=== PATIENT | female | born 1975 | race Caucasian/White ===

== ENCOUNTER 2020-09-07 10:03 | Outpatient (REF) | payer MEDICARE, MEDICAID, SELFPAY ==
--- NOTE | 2020-09-07 | MM_ITS ---
EXAMINATION: MM SCREENING DIGITAL BREAST TOMOSYNTHESIS, BILATERAL CLINICAL INFORMATION: Screening. Asymptomatic. The lifetime risk of breast cancer based on the Tyrer-Cuzick Model is 7%. COMPARISON: Mammography: 09/04/2019, 07/06/2018 TECHNIQUE: Digital breast tomosynthesis is performed in both the craniocaudal and mediolateral oblique views along with computer-aided detection (CAD). Synthesized 2D images are generated from the tomosynthesis. FINDINGS: The breasts are heterogeneously dense, which may obscure small masses (ACR BI-RADS breast composition Category c). There are no significant masses, abnormal calcifications, or other abnormalities. The axilla and skin contours are unremarkable. No significant changes from prior studies. MM/MM tomosynthesis screening BI IMPRESSION: No mammographic evidence of malignancy. ASSESSMENT: BI-RADS 1: Negative RECOMMENDATION: Routine annual mammography screening. This patient's information was entered into a reminder system with a target due date for their next mammogram.
== END 2020-09-07 10:04 | disposition home or self-care (01) ==
LOC: HO.MAMMO 10:03
PROVIDERS: Visit Provider Internal Medicine
DX: Z12.31 Encounter for screening mammogram for malignant neoplasm of breast (principal)
CPT/HCPCS: 77063; 77067

== ENCOUNTER 2021-09-27 08:55 | Outpatient (REF) | payer MEDICARE, MEDICAID, SELFPAY ==
[2021-09-27 09:12] LABS: MANUAL DIFF FLAG NO
[2021-09-27 09:25] LABS: Basophils Percent Auto 0.4 % (0-2); Eosinophils Absolute Auto 0.1 X10*3/uL (0.0-0.4); Eosinophils Percent Auto 0.7 % (0-4); Hemoglobin 14.5 g/dl (12.0-16.0); Imm Gran Abs Auto 0.01 X10*3/uL (0.00-0.03); Imm Gran Pct Auto 0.1 % (0.0-0.4); Lymphocytes Absolute Auto 2.7 X10*3/uL (1.2-4.9); Lymphocytes Percent Auto 35.2 % (20-40); Mean Corpuscular HGB Conc 32.2 g/dl (31.0-35.0); Mean Corpuscular Hemoglobin 31.6 pg (27.0-33.0); Mean Platelet Volume 10.9 fL (9.4-12.3); Monocytes Absolute Auto 0.4 X10*3/uL (0.1-1.2); Neutrophils Absolute Auto 4.4 x10*3/uL (2.0-8.3); Neutrophils Percent Auto 58.6 % (45-73); Platelet Count 327 X10*3/uL (160-400); Red Blood Count 4.59 X10*6/uL (4.20-5.50); Red Cell Distribution Width 13.2 % (11.0-16.0); White Blood Count 7.6 X10*3/uL (4.8-10.8)
[2021-09-27 09:40] LABS: Alanine Aminotransferase 16 U/L (0-31); Albumin Level 4.6 g/dL (3.5-5.0); Alkaline Phosphatase 90 U/L (39-117); Anion Gap 13 (12-20); Aspartate Amino Transferase 14 U/L (5-31); Bilirubin Total 0.4 mg/dL (0.0-1.0); Blood Urea Nitrogen 15 mg/dL (9-16); Calcium 10.2 mg/dL (8.4-10.2); Carbon Dioxide 26 mmol/L (22-29); Chloride 105 mmol/L (96-108); Cholesterol 228 mg/dL; Estimated Glomerular Filt Rate > 60; Glucose Random 90 mg/dL (60-115); HDL Cholesterol 47 mg/dL; LDL Cholesterol Calculated 152 mg/dl; Potassium 4.1 mmol/L (3.3-5.1); Sodium 140 mmol/L (135-145); Total Protein 8.4 g/dL (6.5-8.0); Triglycerides 148 mg/dL
[2021-09-27 10:04] LABS: Free T4 (Free Thyroxine) 1.04 ng/dL (0.71-1.85); Thyroid Stimulating Hormone 0.64 uIU/mL (0.32-4.0)
[2021-09-27 10:20] LABS: Folate 13.4 ng/mL (> or = 4.0); Vitamin B12 280 pg/mL (200-900)
== END 2021-09-27 08:56 | disposition home or self-care (01) ==
LOC: HO.LAB 08:55
PROVIDERS: PCP Internal Medicine; Visit Provider Internal Medicine
DX: K21.9 Gastro-esophageal reflux disease without esophagitis (principal); E78.00 Pure hypercholesterolemia, unspecified
CPT/HCPCS: 36415; 80053; 80061; 82306; 82607; 82746; 84439; 84443; 85025

== ENCOUNTER 2021-10-04 09:03 | Outpatient (REF) | payer MEDICARE, MEDICAID, SELFPAY ==
--- NOTE | ~2021-10-04 | XR_ITS ---
EXAMINATION: XR KNEE, RIGHT CLINICAL INFORMATION: Pain. COMPARISON: None TECHNIQUE: Four views of the right knee. FINDINGS: Bones and soft tissues are normal. No fracture or joint effusion. Alignment is anatomic. Joint spaces are well maintained. No abnormal soft tissue calcification. XR/XR knee RT 4V IMPRESSION: Unremarkable examination.
== END 2021-10-04 09:04 | disposition home or self-care (01) ==
LOC: HO.XRAY 09:03
PROVIDERS: PCP Internal Medicine; Visit Provider Nurse Practitioner Family
DX: M25.561 Pain in right knee (principal)
CPT/HCPCS: 73564

== ENCOUNTER 2021-10-28 08:52 | Outpatient (REF) | payer MEDICARE, MEDICAID, SELFPAY ==
--- NOTE | ~2021-10-28 | MM_ITS ---
EXAMINATION: MM SCREENING DIGITAL BREAST TOMOSYNTHESIS, BILATERAL CLINICAL INFORMATION: Screening. Asymptomatic. The lifetime risk of breast cancer based on the Tyrer-Cuzick Model is 8.1%. COMPARISON: Mammography: 09/07/2020 and studies dating back to 07/06/2018. TECHNIQUE: Digital breast tomosynthesis was performed in both the craniocaudal and mediolateral oblique views along with computer-aided detection (CAD). Synthesized 2D images were generated from the tomosynthesis. FINDINGS: The breasts are heterogeneously dense, which may obscure small masses (ACR BI-RADS breast composition Category c). There is a stable parenchymal pattern of the left breast without new abnormal dominant mass or suspicious grouping of microcalcifications. Within the central aspect of the right breast approximately 5 cm from the nipple, there is a circumscribed density measuring approximately 1.1 x 0.8 cm in size. Ultrasound of the right breast is recommended for further evaluation. MM/MM tomosynthesis screening BI IMPRESSION: New, circumscribed density central aspect of the right breast for further evaluation with ultrasound. ASSESSMENT: BI-RADS 0: Incomplete - Need Additional Imaging Evaluation RECOMMENDATION: Targeted right breast ultrasound.
== END 2021-10-28 08:53 | disposition home or self-care (01) ==
LOC: HO.MAMMO 08:52
PROVIDERS: PCP Internal Medicine; Visit Provider Internal Medicine
DX: Z12.31 Encounter for screening mammogram for malignant neoplasm of breast (principal)
CPT/HCPCS: 77063; 77067

== ENCOUNTER 2021-11-05 09:16 | Outpatient (REF) | payer MEDICARE, MEDICAID, SELFPAY ==
--- NOTE | ~2021-11-05 | US_ITS ---
EXAMINATION: US DIAGNOSTIC ULTRASOUND BREAST, RIGHT CLINICAL INFORMATION: Recall from screening for circumscribed smooth oval nodule central breast mid depth. COMPARISON: Mammography 10/28/2021, 09/07/2020. TECHNIQUE: Ultrasound right breast is targeted to the central breast, interrogated from lateral side. Patient is imaged oblique and steep oblique positions with arm elevated. Grayscale imaging and color Doppler are performed without and with harmonics. FINDINGS: There is a simple cyst 9:00 position 5 cm from nipple measuring approximately 1.0 x 0.6 cm. Margins are smooth. There is increased through-transmission of sound. No associated color flow. This corresponds to finding on mammography. There is no solid mass or architectural abnormality or focal duct ectasia. Results are discussed with the patient at time of visit. US/US breast RT limited IMPRESSION: Simple cyst 9:00 position 5 cm from nipple 1.0 x 0.6 cm, corresponding to finding on recent mammography. ASSESSMENT: BI-RADS 2: Benign RECOMMENDATION: Routine annual mammography screening. This patient's information was entered into a reminder system with a target due date for their next mammogram.
== END 2021-11-05 09:17 | disposition home or self-care (01) ==
LOC: HO.MAMMO 09:16
PROVIDERS: PCP Internal Medicine; Visit Provider Internal Medicine
DX: R92.2 Inconclusive mammogram (principal)
CPT/HCPCS: 76642

== ENCOUNTER 2021-12-03 11:48 | Outpatient (REF) | payer MEDICARE, MEDICAID, SELFPAY ==
--- NOTE | ~2021-12-03 | XR_ITS ---
EXAMINATION: XR CHEST CLINICAL INFORMATION: Cough. COMPARISON: None TECHNIQUE: 2 views of the chest were obtained. FINDINGS: No significant abnormality is noted involving the heart, lungs, mediastinum, bony thorax or soft tissues. XR/XR chest 2V IMPRESSION: Unremarkable chest examination.
== END 2021-12-03 11:49 | disposition home or self-care (01) ==
LOC: HO.XRAY 11:48
PROVIDERS: PCP Internal Medicine; Visit Provider Internal Medicine
DX: R05.9 Cough, unspecified (principal); R06.00 Dyspnea, unspecified
CPT/HCPCS: 71046

== ENCOUNTER 2022-01-25 10:12 | Outpatient (REF) | payer MEDICARE, MEDICAID, SELFPAY | END 2022-01-25 10:13 | disposition home or self-care (01) | LOC: HO.LAB 10:12 | PROVIDERS: PCP Internal Medicine; Visit Provider Nurse Practitioner Family | DX: E55.9 Vitamin D deficiency, unspecified (principal) | CPT/HCPCS: 36415; 82306 ==

== ENCOUNTER 2022-07-05 10:11 | Outpatient (REF) | payer MEDICARE, MEDICAID, SELFPAY ==
[2022-07-05 10:48] LABS: Binax Internal Control QC Valid; Binax Now Covid-19 Ag Negative (Negative); Binax Performed by: HO.BONILM
== END 2022-07-05 10:12 | disposition home or self-care (01) ==
LOC: HO.HMGCLDS 10:11
PROVIDERS: PCP Internal Medicine; Visit Provider Physician Assistant
DX: Z20.822 Contact with and (suspected) exposure to COVID-19 (principal); J02.9 Acute pharyngitis, unspecified
CPT/HCPCS: 87811; C9803

== ENCOUNTER 2022-08-17 08:06 | Outpatient (REF) | payer MEDICARE, MEDICAID, SELFPAY ==
--- NOTE | ~2022-08-17 | XR_ITS ---
EXAMINATION: XR ABDOMEN KUB CLINICAL INDICATION: Constipation COMPARISON: None TECHNIQUE: AP view of the abdomen. FINDINGS: There is stool throughout the colon suggestive of constipation. There are no dilated loops of bowel to suggest obstruction. There are bilateral pelvic calcifications probably representing calcified phleboliths. Bony structures are unremarkable. XR/XR KUB IMPRESSION: Constipation. No evidence of obstruction.
== END 2022-08-17 08:07 | disposition home or self-care (01) ==
LOC: HO.XRAY 08:06
PROVIDERS: PCP Internal Medicine; Visit Provider Nurse Practitioner Family
DX: K59.00 Constipation, unspecified (principal)
CPT/HCPCS: 74018

== ENCOUNTER 2022-09-13 11:53 | Outpatient (REF) | payer MEDICARE, MEDICAID, SELFPAY ==
[2022-09-14 10:23] LABS: BV Int Neg Control Negative (Negative); BV Int Pos Control Positive (Positive)
[2022-09-14 11:04] LABS: CT PCR NOT DETECTED (Not Detect.); NG PCR NOT DETECTED (Not Detect.)
[2022-09-15 19:59] LABS: HPV mRNA E6/E7 rflx Not Detected (Not Detected)
== END 2022-09-13 11:54 | disposition home or self-care (01) ==
LOC: HO.LNP 11:53
PROVIDERS: Visit Provider Advanced Practice Midwife
DX: Z01.419 Encounter for gynecological examination (general) (routine) without abnormal findings (principal); Z11.51 Encounter for screening for human papillomavirus (HPV)
CPT/HCPCS: 87480; 87491; 87510; 87591; 87624; 87660; 88142

== ENCOUNTER 2022-11-11 08:21 | Outpatient (REF) | payer MEDICARE, MEDICAID, SELFPAY ==
--- NOTE | ~2022-11-11 | MM_ITS ---
EXAMINATION: MM SCREENING DIGITAL BREAST TOMOSYNTHESIS, BILATERAL CLINICAL INFORMATION: Screening. Asymptomatic. The lifetime risk of breast cancer based on the Tyrer-Cuzick Model is 11%. COMPARISON: Mammography: 10/28/2021, 09/07/2020, 09/04/2019; right breast ultrasound 11/05/2021. TECHNIQUE: Digital breast tomosynthesis is performed in both the craniocaudal and mediolateral oblique views along with computer-aided detection (CAD). Synthesized 2D images are generated from the tomosynthesis. FINDINGS: The breasts are heterogeneously dense, which may obscure small masses (ACR BI-RADS breast composition Category c). There is fine fibronodular parenchymal pattern is similar to prior study. There are no significant masses, abnormal calcifications, or other abnormalities. Known cyst mid right breast is decreased in size since prior mammography. No significant changes. No developing density. MM/MM tomosynthesis screening BI IMPRESSION: No mammographic evidence of malignancy. ASSESSMENT: BI-RADS 2: Benign RECOMMENDATION: Routine annual mammography screening. This patient's information was entered into a reminder system with a target due date for their next mammogram.
== END 2022-11-11 08:22 | disposition home or self-care (01) ==
LOC: HO.MAMMO 08:21
PROVIDERS: PCP Internal Medicine; Visit Provider Internal Medicine
DX: Z12.31 Encounter for screening mammogram for malignant neoplasm of breast (principal)
CPT/HCPCS: 77063; 77067

== ENCOUNTER → 2022-12-09 14:36 | Outpatient (BNVA) | payer MEDICARE, MEDICAID, SELFPAY | PROVIDERS: PCP Internal Medicine; Referring Provider Internal Medicine; Visit Provider Internal Medicine | DX: Z01.818 Encounter for other preprocedural examination (principal) | CPT/HCPCS: 99202 ==

== ENCOUNTER 2023-03-16 19:21 | Emergency (ER) | payer MEDICARE, MEDICAID, SELFPAY ==
[2023-03-16 21:05] VITALS: BP 184/105; PULSE 86; RESP 20; TEMP 36.2; O2SAT 98; BMI 32.8
--- NOTE | 2023-03-16 21:25 | ECG_ITS ---
Test Reason : CHEST PAIN Blood Pressure : / mmHG Vent. Rate : 077 BPM Atrial Rate : 077 BPM P-R Int : 148 ms QRS Dur : 078 ms QT Int : 372 ms P-R-T Axes : 000 191 170 degrees QTc Int : 420 ms Suspect limb lead reversal, interpretation assumes no reversal Normal sinus rhythm Right superior axis deviation T wave abnormality, consider inferior ischemia Abnormal ECG When compared with ECG of 21-MAR-2008 11:05, Questionable change in QRS axis Repeat EKG Referred By: Gema Morse Electronically Signed By:SANDRA BLUE MD
[2023-03-16 21:54] LABS: MANUAL DIFF FLAG NO
[2023-03-16 21:56] LABS: Basophils Percent Auto 0.4 % (0-2); Eosinophils Absolute Auto 0.1 X10*3/uL (0.0-0.4); Eosinophils Percent Auto 0.5 % (0-4); Hematocrit 43.1 % (37.0-47.0); Hemoglobin 14.4 g/dl (12.0-16.0); Imm Gran Abs Auto 0.02 X10*3/uL (0.00-0.03); Imm Gran Pct Auto 0.2 % (0.0-0.4); Lymphocytes Absolute Auto 3.2 X10*3/uL (1.2-4.9); Lymphocytes Percent Auto 32.1 % (20-40); Mean Corpuscular HGB Conc 33.4 g/dl (31.0-35.0); Mean Corpuscular Hemoglobin 31.4 pg (27.0-33.0); Mean Corpuscular Volume 94.1 fL (80.0-98.0); Mean Platelet Volume 10.3 fL (9.4-12.3); Monocytes Absolute Auto 0.5 X10*3/uL (0.1-1.2); Monocytes Percent Auto 5.3 % (2-11); Neutrophils Absolute Auto 6.2 x10*3/uL (2.0-8.3); Neutrophils Percent Auto 61.5 % (45-73); Platelet Count 315 X10*3/uL (160-400); Red Blood Count 4.58 X10*6/uL (4.20-5.50); Red Cell Distribution Width 13.4 % (11.0-16.0)
[2023-03-16 22:10] LABS: Anion Gap 14 (12-20); Blood Urea Nitrogen 15 mg/dL (9-16); Calcium 10.1 mg/dL (8.4-10.2); Carbon Dioxide 25 mmol/L (22-29); Chloride 105 mmol/L (96-108); Creatinine Clr Calc Pharmacy 95.2; Estimated Glomerular Filt Rate > 60; Glucose Random 93 mg/dL (60-115); Sodium 140 mmol/L (135-145)
[2023-03-16 22:37] LABS: Troponin-I High Sensitivity < 2.7 ng/L (<3.5-17.0)
[2023-03-16 22:59] VITALS: BP 178/88; PULSE 87; RESP 16; O2SAT 99
--- NOTE | 2023-03-16 23:32 | ED_ITS ---
HPI - General Adult General Chief complaint: General Medical Stated complaint: high blood pressure Time Seen by Provider: 03/16/23 22:55 Source: patient, RN notes reviewed and old records reviewed Mode of arrival: ambulatory Limitations: no limitations History of Present Illness HPI narrative: 47-year-old female presents for evaluation of ?high blood pressure. ? Patient reports that she woke up with a mild headache today. She reports feeling warm sensation in her face Patient states that due to this she checked her blood pressure and it was quite high as high as 180/107 Patient does not take medication for high blood pressure Currently her headache has resolved, she never had any chest pain, shortness of breath She did not take any medications or bleed her symptoms. Denies any fevers, chills Related Data Previous Rx's Medication Instructions Recorded cane #1 ea 10/30/20 ibuprofen 600 mg tablet 600 mg PO Q8H PRN pain #15 tabs 10/01/21 cholecalciferol (vitamin D3) 50 50 mcg PO DAILY #90 tabs 04/25/22 mcg (2,000 unit) tablet sumatriptan succinate 50 mg tablet 50 mg PO Q2-4H PRN migraine 05/23/22 (Imitrex) headache #14 tabs ropinirole 0.25 mg tablet 0.25 mg PO BEDTIME #90 tabs 11/05/22 Allergies Allergy/AdvReac Type Severity Reaction Status Date / Time No Known Allergies Allergy Verified 03/16/23 21:12 Review of Systems Constitutional: Constitutional: Reports as per HPI, Denies chills, Denies fatigue, Denies fever(s) and Reports headache(s) ENT: Reports headache(s) Cardiovascular: Cardiovascular: Denies chest pain and Denies dyspnea Respiratory: Respiratory: Denies cough and Denies dyspnea Gastrointestinal: Gastrointestinal: Denies abdominal pain, Denies constipation and Denies vomiting Genitourinary: Genitourinary: Denies dysuria Neurologic: Reports headache(s) and Denies focal weakness Endocrine: Endocrine: Denies fatigue PMFSH Past Medical History Medical History Anxiety and depression GERD (gastroesophageal reflux disease) History of lead exposure Hypercholesterolemia Migraine Nasal bone fracture Restless leg syndrome Surgical History H/O LEEP History of section History of surgery History of tubal ligation Family History Family History Father Mouth cancer Mother No problems noted. Sister Bipolar 1 disorder Maternal Aunt Breast cancer Other Mental health disorder Social History Social History Housing: Apartment Alcohol intake: current Alcohol intake frequency: holidays/special occasions only Patient Tobacco Use Status: Never used Tobacco e-Cigarette/Vaping Use: Never Used Second Hand Smoke Exposure: No Advance Directives: No Advance Directives Information Provided: Yes service: No Current occupational status: unemployed Current occupational exposures/hazards: No Cognitive needs: Yes (cane) Hearing needs: No Vision needs: Yes (Glasses) Physical Exam ED Vital Signs: Vital Signs - 24 hr 03/16/23 21:05 03/16/23 22:59 Temperature 97.2 F Pulse Rate 86 87 Respiratory Rate 20 16 Blood Pressure 184/105 H 178/88 H Pulse Oximetry 98 99 Oxygen Delivery Method Room Air Room Air BMI result Body Mass Index 32.8 Const General: healthy appearing, comfortable, no acute distress, alert and awake Nutritional Appearance: well nourished Orientation/consciousness: patient oriented x3 HENMT Head: Yes normocephalic and Yes atraumatic Throat: Yes posterior oropharynx normal Eyes Eyelids: Yes eyelids normal Conjunctivae: conjunctivae normal Sclerae: sclerae normal Corneas: corneas normal Pupils: Equal, round and reactive pupils present EOM: EOMs intact bilaterally Neck Neck: Yes full ROM Skin General skin exam: no rashes or lesions noted and elasticity normal Neuro General: patient oriented x3 Cranial nerves: Yes CN's II-XII intact bilaterally, Yes Equal, round and reactive pupils present and Yes Bilaterally intact EOM present Cognition (Neuro): normal cognition Extrem Other: Moving all extremities well without any obvious deformities Medical Decision Making Medical Decision Making MDM Narrative: Patient complained of a headache earlier today, he complains of high blood pressure. Her blood pressure while I was evaluating her was 159/87. She is currently asymptomatic. She has had elevated blood pressure readings and 1 other time last year. Will discharge her to keep a blood pressure log and follow-up with her Doctor to determine if she should be on antihypertensive medication Differential Diagnosis Differential Diagnoses: The differential diagnosis associated with the presentation includes Acute headache Viral syndrome Elevated blood pressure Hypertension Lab Data MDM Lab Attestation statement: I reviewed the patient's lab results. No significant lab abnormalities 03/16/23 21:49 03/16/23 21:49 Labs: Lab Results 03/16/23 03/16/23 03/16/23 Range/Units 21:49 21:49 21:49 WBC 10.0 (4.8-10.8) X10*3/uL RBC 4.58 (4.20-5.50) X10*6/uL Hgb 14.4 (12.0-16.0) g/dl Hct 43.1 (37.0-47.0) % MCV 94.1 (80.0-98.0) fL MCH 31.4 (27.0-33.0) pg MCHC 33.4 (31.0-35.0) g/dl RDW 13.4 (11.0-16.0) % Plt Count 315 (160-400) X10*3/uL MPV 10.3 (9.4-12.3) fL Immature Gran % (Auto) 0.2 (0.0-0.4) % Neut % (Auto) 61.5 (45-73) % Lymph % (Auto) 32.1 (20-40) % Woodward % (Auto) 5.3 (2-11) % Eos % (Auto) 0.5 (0-4) % Baso % (Auto) 0.4 (0-2) % Lymph # (Auto) 3.2 (1.2-4.9) X10*3/uL Woodward # (Auto) 0.5 (0.1-1.2) X10*3/uL Eos # (Auto) 0.1 (0.0-0.4) X10*3/uL Baso # (Auto) 0.0 (0.0-0.2) X10*3/uL Abs Immat Gran (auto) 0.02 (0.00-0.03) X10*3/uL Absolute Neuts (auto) 6.2 (2.0-8.3) x10*3/uL Absolute Nucleated RBC 0.000 (0.0-0.012) X10*3/uL Nucleated RBC % (auto) 0.0 (0.0-0.2) /100WBC Sodium 140 (135-145) mmol/L Potassium 4.0 (3.3-5.1) mmol/L Chloride 105 (96-108) mmol/L Carbon Dioxide 25 (22-29) mmol/L Anion Gap 14 (12-20) BUN 15 (9-16) mg/dL Creatinine 0.68 (0.5-1.4) mg/dL Estim Creat Clear Calc 95.2 Estimated GFR > 60 Random Glucose 93 (60-115) mg/dL Calcium 10.1 (8.4-10.2) mg/dL Troponin I High Sens < 2.7 (<3.5-17.0) ng/L Independent Interpretation I performed an independent interpretation of an: EKG (Sinus rhythm rate of 77 beats per minute. No acute ischemic) Discharge Plan Discharge Clinical Impression: Headache, Elevated blood pressure reading Patient Disposition: Home, Self-Care Instructions: Chronic Hypertension (ED) Additional Instructions: Your workup today was reassuring. Use Motrin or Tylenol for any headaches Follow-up with your primary doctor Check your blood pressure once every day around the same time every day and after resting for 15 minutes and keep a log of these numbers to bring to your d octor Prescriptions: No Action (DME) cane See Rx Instructions .Route .MEDSUPPLY Qty: 1 0RF Rx Instructions: As directed cholecalciferol (vitamin D3) 50 mcg (2,000 unit) tablet 50 mcg PO DAILY Qty: 90 3RF sumatriptan succinate [Imitrex] 50 mg tablet 50 mg PO Q2-4H PRN (Reason: migraine headache) Qty: 14 11RF Rx Instructions: do not exceed 4 doses per 24 hrs ropinirole 0.25 mg tablet 0.25 mg PO BEDTIME Qty: 90 2RF Rx Instructions: administer 1-3 hours before bedtime ibuprofen 600 mg tablet 600 mg PO Q8H PRN (Reason: pain) Qty: 15 0RF
--- NOTE | 2023-03-17 00:09 | PC.NURSE ---
pt assessed at d/, denies any complaints. b/p 143/96
== END 2023-03-17 00:10 | disposition home or self-care (01) ==
PROVIDERS: Physician Assistant Medical; Emergency Provider Internal Medicine; PCP Internal Medicine
DX: R51.9 Headache, unspecified (principal); R07.89 Other chest pain; I10 Essential (primary) hypertension; Z79.899 Other long term (current) drug therapy
CPT/HCPCS: 36415; 80048; 84484; 85025; 93005; 99283; 99284

== ENCOUNTER 2023-03-27 08:09 | Outpatient (REF) | payer MEDICARE, MEDICAID, SELFPAY ==
[2023-03-27 08:30] LABS: MANUAL DIFF FLAG NO
[2023-03-27 09:04] LABS: Basophils Percent Auto 0.5 % (0-2); Eosinophils Absolute Auto 0.1 X10*3/uL (0.0-0.4); Eosinophils Percent Auto 1.2 % (0-4); Hematocrit 43.1 % (37.0-47.0); Hemoglobin 14.2 g/dl (12.0-16.0); Imm Gran Abs Auto 0.01 X10*3/uL (0.00-0.03); Imm Gran Pct Auto 0.1 % (0.0-0.4); Lymphocytes Absolute Auto 2.8 X10*3/uL (1.2-4.9); Lymphocytes Percent Auto 37.9 % (20-40); Mean Corpuscular HGB Conc 32.9 g/dl (31.0-35.0); Mean Corpuscular Hemoglobin 31.8 pg (27.0-33.0); Mean Corpuscular Volume 96.6 fL (80.0-98.0); Mean Platelet Volume 11.1 fL (9.4-12.3); Monocytes Absolute Auto 0.5 X10*3/uL (0.1-1.2); Monocytes Percent Auto 6.3 % (2-11); Neutrophils Absolute Auto 3.9 x10*3/uL (2.0-8.3); Platelet Count 285 X10*3/uL (160-400); Red Blood Count 4.46 X10*6/uL (4.20-5.50); Red Cell Distribution Width 13.5 % (11.0-16.0); White Blood Count 7.3 X10*3/uL (4.8-10.8)
[2023-03-27 09:44] LABS: Alanine Aminotransferase 12 U/L (0-31); Albumin Level 4.4 g/dL (3.5-5.0); Alkaline Phosphatase 83 U/L (39-117); Anion Gap 13 (12-20); Aspartate Amino Transferase 14 U/L (5-31); Bilirubin Total 0.3 mg/dL (0.0-1.0); Blood Urea Nitrogen 22 mg/dL (9-16); Calcium 10.1 mg/dL (8.4-10.2); Carbon Dioxide 24 mmol/L (22-29); Chloride 106 mmol/L (96-108); Cholesterol 224 mg/dL; Estimated Glomerular Filt Rate > 60; Glucose Random 89 mg/dL (60-115); HDL Cholesterol 47 mg/dL; LDL Cholesterol Calculated 149 mg/dl; Potassium 4.5 mmol/L (3.3-5.1); Sodium 138 mmol/L (135-145); Total Protein 7.8 g/dL (6.5-8.0); Triglycerides 141 mg/dL
[2023-03-27 09:58] LABS: Free T4 (Free Thyroxine) 0.87 ng/dL (0.71-1.85); Thyroid Stimulating Hormone 0.65 uIU/mL (0.32-4.0); Vitamin B12 241 pg/mL (200-900); Vitamin D 25-OH Total 29.8 ng/mL (>30)
[2023-03-27 10:53] LABS: Appearance Urine Clear; Color Urine Yellow; Glucose Urine UA Negative (Negative); Leukocyte Esterase Urine Trace (Negative); Nitrite Urine Negative (Negative); PH 5.5 (5.0-9.0); UMIC TRIGGER UA YES; Urine Blood Negative (Negative); Urine Ketones Negative (Negative); Urine Protein Negative (Neg-Trace)
[2023-03-27 11:03] LABS: Bacteria Urine 1+ (None Seen); Hyaline Casts Urine 0-2 /LPF (0-2); RBC Urine 0-2 /HPF (0-2); Squamous Epithelial Cell Urine 0-2 /HPF (0-2); WBC Urine 0-5 /HPF (0-5)
== END 2023-03-27 08:10 | disposition home or self-care (01) ==
LOC: HO.LAB 08:09
PROVIDERS: PCP Internal Medicine; Visit Provider Internal Medicine
DX: E78.00 Pure hypercholesterolemia, unspecified (principal); K21.9 Gastro-esophageal reflux disease without esophagitis; E55.9 Vitamin D deficiency, unspecified
CPT/HCPCS: 36415; 80053; 80061; 81001; 82306; 82607; 82746; 84439; 84443; 85025

== ENCOUNTER 2023-05-22 15:38 | Outpatient (AMB) | payer MEDICARE, MEDICAID, SELFPAY ==
[2023-05-22 15:42] VITALS: BP 138/82; PULSE 80; O2SAT 98; BMI 33.2
--- NOTE | 2023-05-22 15:42 | A.OFFPC_ITS ---
Vital Signs 05/22/23 15:42 05/22/23 15:51 Height 5 ft Weight 170 lb BMI 33.2 BP 138/82 150/98 H Blood Pressure Location Lt brachial Lt brachial Position Sitting Sitting Pulse 80 Pulse Source Pulse Oximeter Pulse Oximetry (%) 98 Oxygen Delivery Method Room Air Intake Visit Reasons: blood pressure elevation Allergies No Known Allergies Allergy (Verified 05/22/23 15:42) Medication List - Last Reconciled 05/22/23 by Carmen Velez MD blood pressure monitor (Blood Pressure Kit) As directed [cane As directed] cholecalciferol (vitamin D3) 50 mcg PO DAILY hydrochlorothiazide 12.5 mg PO DAILY ropinirole 0.25 mg PO BEDTIME sennosides-docusate sodium 8.6-50 mg (Senna Plus) 2 tab-caps (2 x 8.6-50 mg) PO BEDTIME 30 days sumatriptan succinate (Imitrex) 50 mg PO Q2-4H PRN Tobacco use date assessed: 03/21/23 Dental Screening Dental Screen Date: 05/22/23 Did you have a dental visit in the last 12 months?: Yes Did you have a dental problem in the last 6 months where you did not have access to dental care?: No Was dental information given to patient?: Patient has dentist HPI blood pressure elevation HPI Details 47-year-old female with GERD hypercholesterolemia generalized anxiety disorder last seen in March 2023. Patient was noted to an an elevated blood pressure without history of hypertension advised to monitor the blood pressure.. Patient just had blood work done also BP at home 115/95, 89, 110/89 92 131/96, 67. Concern with the patient having high blood pressure. Advised to make sure low sodium diet and keep well hydrated. [facility] Medical History (Updated 05/22/23 @ 15:52 by Carmen Velez MD) Breast cancer screening Breast density Colon cancer screening Constipation Cough Elevated blood pressure reading GERD (gastroesophageal reflux disease) History of lead exposure Hypercholesterolemia Migraine Nasal bone fracture Nausea Plantar wart of right foot Restless leg syndrome Sacroiliac joint somatic dysfunction Suprapubic pain Surgical History H/O LEEP History of section History of surgery History of tubal ligation Family History Father Mouth cancer Mother No problems noted. Sister Bipolar 1 disorder Maternal Aunt Breast cancer Other Mental health disorder Social History Housing: Apartment Alcohol intake: current Alcohol intake frequency: holidays/special occasions only Patient Tobacco Use Status: Never used Tobacco e-Cigarette/Vaping Use: Never Used Second Hand Smoke Exposure: No service: No Current occupational status: unemployed Current occupational exposures/hazards: No Cognitive needs: Yes (cane) Hearing needs: No Vision needs: Yes (Glasses) Female Reproductive History Menstrual Age of Menarche: 15 Questionnaire Thrive Questionnaire Date Thrive assessed: 03/21/23 AUDIT C Alcohol Use Questionnaire (AUDIT-C) 1. How often do you have a drink containing alcohol?: Monthly or less 2. How many drinks containing alcohol do you have on a typical day when you are drinking?: 1 or 2 3. How often do you have six or more drinks on one occasion?: Never Total Score: 1 Score Reviewed/Action Taken: No NICOLAS-7 AMB Questionnaire NICOLAS-7 Date NICOLAS - 7 assessed: 03/21/23 Source: Developed by Drs. Kris Barrera, Kaylyn Back, Costa Powell and colleagues, with an educational tim from [employer]. Physical exam (Primary Care) Vital Signs: Last Vital Signs Pulse 80 05/22/23 15:42 BP 138/82 05/22/23 15:42 Pulse Ox 98 05/22/23 15:42 Oxygen Delivery Method Room Air 05/22/23 15:42 BMI result Body Mass Index 33.2 Tobacco/Smoking Status: Tobacco use Status Tobacco use date assessed 03/21/23 05/22/23 15:43 Patient Tobacco Use Status Never used Tobacco 05/22/23 15:43 e-Cigarette/Vaping Use Never Used 05/22/23 15:43 Thrive Assessment: Date of Thrive Assessment Date Thrive assessed 03/21/23 05/22/23 15:43 Const General: alert; No acute distress Eyes Conjunctivae: conjunctivae normal Resp Auscultation: clear to auscultation bilaterally Cardio Rate: regular rate Rhythm: regular rhythm GI Inspection: Yes normal to inspection Extrem General: Yes normal to inspection and No edema Assessment and Plan Assessment & Plan (1) Blood pressure elevated without history of HTN: Code(s): R03.0 - Elevated blood-pressure reading, without diagnosis of hypertension Plan: Continue to monitor blood pressure. (2) Generalized anxiety disorder: Code(s): F41.1 - Generalized anxiety disorder Plan: Stable (3) GERD (gastroesophageal reflux disease): Code(s): K21.9 - Gastro-esophageal reflux disease without esophagitis Plan: Avoid the foods that causes that usually spicy foods, tomato products, juices, coffee, soda and foods that your sensitive to. After eating do not lie down, allow 3-4 hours before in lie down. And keep the head of bed above 30 degrees t o avoid the acid from going up. (4) Hypercholesterolemia: Code(s): E78.00 - Pure hypercholesterolemia, unspecified Plan: Avoid fried foods, chicken skin, eggs, butter margarine, pastries and meat. Be it pork or beef they have a lot of cholesterol LDL goal of less than 130 and triglyceride of less than (5) Low vitamin B12 level: Code(s): E53.8 - Deficiency of other specified B group vitamins Plan: Vitamin B12 1000 mcg once a day (6) Hypertension: Code(s): I10 - Essential (primary) hypertension Medications: New hydrochlorothiazide 12.5 mg PO DAILY 30 tabs 4RF I10 - Essential (primary) hypertension Coding Level of Care Code Est Pt Level 4 (30235) Diagnoses Blood pressure elevated without history of HTN R03.0 Generalized anxiety disorder F41.1 GERD (gastroesophageal reflux disease) K21.9 Hypercholesterolemia E78.00 Low vitamin B12 level E53.8 Hypertension I10
[2023-05-22 15:51] VITALS: BP 150/98
== END 2023-05-22 16:00 | disposition home or self-care (01) ==
PROVIDERS: PCP Internal Medicine; Visit Provider Internal Medicine
DX: R03.0 Elevated blood-pressure reading, without diagnosis of hypertension (principal); F41.1 Generalized anxiety disorder; K21.9 Gastro-esophageal reflux disease without esophagitis; I10 Essential (primary) hypertension; E78.00 Pure hypercholesterolemia, unspecified; E53.8 Deficiency of other specified B group vitamins
CPT/HCPCS: 99214

== ENCOUNTER 2023-05-30 13:16 | Outpatient (AMB) | payer MEDICARE, MEDICAID, SELFPAY ==
--- NOTE | 2023-05-30 13:47 | MHC.OFFVIS ---
Intake Vital Signs 05/30/23 13:48 Height 5 ft Weight 170 lb BMI 33.2 BP 128/84 Blood Pressure Location Rt brachial Position Sitting Intake Visit Reasons: outside vag itch Civil Rights Representative Required: No Accompanied by: Self / Same As Patient Allergies No Known Allergies Allergy (Verified 05/22/23 15:42) Medication List - Last Reconciled 05/30/23 by Noni Rivera CNM blood pressure monitor (Blood Pressure Kit) As directed [cane As directed] cholecalciferol (vitamin D3) 50 mcg PO DAILY hydrochlorothiazide 12.5 mg PO DAILY ropinirole 0.25 mg PO BEDTIME sennosides-docusate sodium 8.6-50 mg (Senna Plus) 2 tab-caps (2 x 8.6-50 mg) PO BEDTIME 30 days HPI outside vag itch HPI Details Patient is here to get a an area on the side of her vagina checked out it has been very itchy for 4 days and it is painful she has been scratching it she has long nail extensions. She is with her current partner for the last 3 years and is happy in this relationship and has some regret about getting her tubal ligation because even though she has a 23-year-old a 16-year-old and a 10-year-old she would like to have a baby with him. She is on medication for her high blood pressure. [facility] Medical History (Updated 05/30/23 @ 14:34 by Noni Rivera CNM) Breast cancer screening Breast density Colon cancer screening Constipation Cough Elevated blood pressure reading GERD (gastroesophageal reflux disease) History of lead exposure Hypercholesterolemia Migraine Nasal bone fracture Nausea Plantar wart of right foot Restless leg syndrome Sacroiliac joint somatic dysfunction Suprapubic pain Surgical History H/O LEEP History of section History of surgery History of tubal ligation Family History Father Mouth cancer Mother No problems noted. Sister Bipolar 1 disorder Maternal Aunt Breast cancer Other Mental health disorder Social History Housing: Apartment Alcohol intake: current Alcohol intake frequency: holidays/special occasions only Patient Tobacco Use Status: Never used Tobacco e-Cigarette/Vaping Use: Never Used Second Hand Smoke Exposure: No service: No Current occupational status: unemployed Current occupational exposures/hazards: No Cognitive needs: Yes (cane) Hearing needs: No Vision needs: Yes (Glasses) Female Reproductive History Menstrual Age of Menarche: 15 Physical Exam Vital Signs: Last Vital Signs BP 128/84 05/30/23 13:48 BMI result Body Mass Index 33.2 Other: To the right of her vagina there was approximately a 2 x 3 cm area that is reddened that appears to have surface vesicles that some of them are on removed and some of them appear to have started to scab over. When swabbed with Q-tips there is a clear drainage with some blood tinge from swabbing to try and unroof the lesions. Vaginal discharge appears otherwise normal. External Female Exam: normal appearance of the urethra Speculum Exam - Vagina: normal appearance of the vagina and normal vaginal discharge Speculum Exam - Cervix: normal appearance of the cervix and Cervical os closed Assessment & Plan Assessment & Plan (1) Screen for sexually transmitted diseases: Code(s): Z11.3 - Encounter for screening for infections with a predominantly sexual mode of transmission (2) H/O LEEP: Comment: 09/13/2022 Pap is negative with negative HPV Code(s): Z98.890 - Other specified postprocedural states (3) Lesion of female perineum: Comment: Unclear etiology possibilities discussed including HSV versus bacterial from scratching. Await testing will treat presumptively with Valtrex and zovirax Code(s): N90.9 - Noninflammatory disorder of vulva and perineum, unspecified Plan Testing done for GC chlamydia trichomoniasis Gardnerella and yeast do not expect positives on these. Swabs taken for HSV from lesion as well as a bacterial culture. It is unclear about diagnosis at this stage we will await testing but I am going to treat her presumptively as if it might be herpes because it takes that long to get the results that she would be done with the treatment for primary outbreak. She has never had anything like this before. It does hurt somewhat she says her partner does not have oral herpes and needed does she but then she said he does get some sores on his lips every now and then but says they are nothing. I explained herpes transmission and that it often can be from cold sores that have been present for someone that coming go for many years or decades. Discussed that it is the same virus. Will treat with Valtrex and also zovirax ointment because she wanted something topical. If it is not available by prescription I told her to ask the pharmacist about getting it [id number]. Other than that I recommend very careful hand washing careful perineal and hand and nail hygiene especially if she touches that area to not touch her eyes. Also discussed just using perhaps clean soft paper towel and padding clean with cold water and drying with a dry piece and carefully disposing. She declined other blood work. I asked her to call for an appointment to see in 1-2 weeks if she is not better but she for the result if she has not heard from os but we will call her for any positive finding. Orders: Orders Routine Culture w Gram Stain Today N89.8 - Other specified noninflammatory disorders of vagina Bacterial Vaginosis Panel Today N89.8 - Other specified noninflammatory disorders of vagina CT NG by PCR Today N89.8 - Other specified noninflammatory disorders of vagina Herpes Virus Culture rflx Type Today N89.8 - Other specified noninflammatory disorders of vagina Medications: New valacyclovir 1,000 mg PO BID 14 tabs 0RF acyclovir 5% (Zovirax) 1 appl topical QID 7 days 5 grams 0RF Coding Level of Care Code Est Pt Level 3 (50594) Diagnoses Screen for sexually transmitted diseases Z11.3 H/O LEEP Z98.890 Lesion of female perineum N90.9
[2023-05-30 13:48] VITALS: BP 128/84; BMI 33.2
== END 2023-05-30 14:32 | disposition home or self-care (01) ==
LOC: HO.HWS 13:16
PROVIDERS: PCP Internal Medicine; Visit Provider Advanced Practice Midwife
DX: Z11.3 Encounter for screening for infections with a predominantly sexual mode of transmission (principal); Z98.890 Other specified postprocedural states; N90.9 Noninflammatory disorder of vulva and perineum, unspecified
CPT/HCPCS: 99213

== ENCOUNTER 2023-05-30 13:16 | Outpatient (REF) | payer MEDICARE, MEDICAID, SELFPAY ==
[2023-05-31 12:11] LABS: CT PCR NOT DETECTED (Not Detect.); NG PCR NOT DETECTED (Not Detect.)
[2023-05-31 15:11] LABS: BV Int Neg Control Negative (Negative); BV Int Pos Control Positive (Positive)
== END 2023-05-30 13:17 | disposition home or self-care (01) ==
LOC: HO.LNP 13:16
PROVIDERS: PCP Internal Medicine; Visit Provider Advanced Practice Midwife
DX: N90.9 Noninflammatory disorder of vulva and perineum, unspecified (principal); N89.8 Other specified noninflammatory disorders of vagina; Z98.890 Other specified postprocedural states; Z20.2 Contact with and (suspected) exposure to infections with a predominantly sexual mode of transmission
CPT/HCPCS: 0353U; 87070; 87205; 87255; 87480; 87510; 87660; 99212

== ENCOUNTER 2023-07-03 09:49 | Outpatient (AMB) | payer MEDICARE, MEDICAID, SELFPAY ==
--- NOTE | 2023-07-03 09:51 | A.OFFPC_ITS ---
Vital Signs 07/03/23 09:52 Height 5 ft Weight 166 lb BMI 32.4 BP 136/64 Blood Pressure Location Lt brachial Position Sitting Pulse 76 Pulse Source Pulse Oximeter Pulse Oximetry (%) 99 Oxygen Delivery Method Room Air Intake Visit Reasons: HTN, cholesterol Support Services Coordinator: Not Required per policy Accompanied by: Self / Same As Patient Allergies No Known Allergies Allergy (Verified 07/03/23 10:10) Tobacco use date assessed: 03/21/23 Dental Screening Dental Screen Date: 07/03/23 Did you have a dental visit in the last 12 months?: Yes Did you have a dental problem in the last 6 months where you did not have access to dental care?: No Was dental information given to patient?: Patient has dentist HPI HPI Comments History of Present Illness Details 47-year-old female past medical history significant for hypercholesteremia, GERD, migraine, hypertension. Patient presents today for follow up appointment. Patient reports she has been checking her blood pressure at home and states that once in the 130 systolic and primarily in the 80s diastolic. Last LDL borderline elevated at 149. Repeat fasting lab work ordered. Patient denies any acute concerns. Denies the need for any refills at this time. [facility] Medical History Herpes genitalis Colon cancer screening Breast cancer screening Constipation Elevated blood pressure reading Nausea Cough Breast density Plantar wart of right foot Nasal bone fracture History of lead exposure Restless leg syndrome GERD (gastroesophageal reflux disease) Hypercholesterolemia Migraine Suprapubic pain Sacroiliac joint somatic dysfunction Surgical History History of surgery H/O LEEP History of section History of tubal ligation Family History Father Mouth cancer Mother No problems noted. Sister Bipolar 1 disorder Maternal Aunt Breast cancer Other Mental health disorder Social History Housing: Apartment Alcohol intake: current Alcohol intake frequency: holidays/special occasions only Patient Tobacco Use Status: Never used Tobacco e-Cigarette/Vaping Use: Never Used Second Hand Smoke Exposure: No service: No Current occupational status: unemployed Current occupational exposures/hazards: No Cognitive needs: Yes (cane) Hearing needs: No Vision needs: Yes (Glasses) Female Reproductive History Menstrual Age of Menarche: 15 Questionnaire PHQ-9 Over the last 2 weeks, how often have you been bothered by any of the following problems? 1. Little interest or pleasure in doing things: not at all 2. Feeling down, depressed, or hopeless: not at all 3. Trouble falling or staying asleep, or sleeping too much: not at all 4. Feeling tired or having little energy: not at all 5. Poor appetite or overeating: not at all 6. Feeling bad about yourself - or that you are a failure or have let yourself or your family down: not at all 7. Trouble concentrating on things, such as reading the newspaper or watching television: not at all 8. Moving or speaking so slowly that other people could have noticed. Or the opposite - being so fidgety or restless that you have been moving around a lot more than usual: not at all 9. Thoughts that you would be better off or of hurting yourself in some way: not at all Total score: 0 Depression Screening Interpretation: Negative Source: Developed by Drs. Kris Barrera, Kaylyn Back, Costa Powell and colleagues, with an educational tim from [employer]. Thrive Questionnaire Date Thrive assessed: 03/21/23 AUDIT C Alcohol Use Questionnaire (AUDIT-C) 1. How often do you have a drink containing alcohol?: Monthly or less 2. How many drinks containing alcohol do you have on a typical day when you are drinking?: 1 or 2 3. How often do you have six or more drinks on one occasion?: Never Total Score: 1 Score Reviewed/Action Taken: No NICOLAS-7 AMB Questionnaire NICOLAS-7 Date NICOLAS - 7 assessed: 03/21/23 Source: Developed by Drs. Kris Barrera, Costa Chavez and colleagues, with an educational tim from [employer]. Review of Systems Const Denies chills, Denies fatigue, Denies fever(s) and Denies poor appetite Eyes Denies no additional complaints ENT Reports Normal hearing present Card Denies chest pain, Denies syncope, Denies rapid heart rate and Denies dyspnea Resp Denies cough and Denies dyspnea GI Denies change in stool character, Denies constipation, Denies diarrhea, Denies nausea and Denies vomiting Denies urinary frequency, Denies dysuria and Denies urinary urgency Neuro Reports Normal hearing present, Denies confusion and Denies syncope Psych Denies confusion Endo Denies fatigue Physical exam (Primary Care) Vital Signs: Last Vital Signs Pulse 76 07/03/23 09:52 BP 136/64 07/03/23 09:52 Pulse Ox 99 07/03/23 09:52 Oxygen Delivery Method Room Air 07/03/23 09:52 BMI result Body Mass Index 32.4 Tobacco/Smoking Status: Tobacco use Status Tobacco use date assessed 03/21/23 07/03/23 09:56 Patient Tobacco Use Status Never used Tobacco 07/03/23 09:56 e-Cigarette/Vaping Use Never Used 07/03/23 09:56 PHQ-9: PHQ-9 Score PHQ-9: Total score 0 07/03/23 09:56 Depression Screening Interpretation: Negative Thrive Assessment: Date of Thrive Assessment Date Thrive assessed 03/21/23 07/03/23 09:56 Const General: No confusion Orientation/consciousness: No confusion HENMT Head: Yes normocephalic and Yes atraumatic Eyes Conjunctivae: conjunctivae normal Chest Chest palpation & inspection: normal inspection of the chest Resp Effort & Inspection: normal respiratory effort Auscultation: clear to auscultation bilaterally, no crackles, no rhonchi and no wheezes Cardio Rate: regular rate Rhythm: regular rhythm Heart sounds: S1 normal heart sound present and S2 normal heart sound present GI Inspection: Yes normal to inspection Neuro General: No confusion Cranial nerves: Yes Normal hearing present Extrem General: No edema Assessment and Plan Assessment & Plan (1) Hypertension: Code(s): I10 - Essential (primary) hypertension Plan: Continue on hydrochlorothiazide 12.5 mg daily. Follow low-salt diet and exercise. Continue to check blood pressures at home periodically after send for 3-5 minutes keep a log. (2) Hypercholesterolemia: Code(s): E78.00 - Pure hypercholesterolemia, unspecified Plan: Repeat fasting lab work ordered. Patient advised to follow low-cholesterol diet, Avoid fried foods, chicken skin, eggs, butter,margarine, pastries and? red meat. Plan Keep scheduled physical exam in September with Orders: Orders Lipid Panel Today Z13.220 - Encounter for screening for lipoid disorders Complete Blood Count no Diff Today Z13.0 - Encounter for screening for diseases of the blood and blood-forming organs and certain disorders involving the immune mechanism Comprehensive [place]. Panel Fast Today I10 - Essential (primary) hypertension Coding Level of Care Code Est Pt Level 3 (77776) Diagnoses Hypertension I10 Hypercholesterolemia E78.00
[2023-07-03 09:52] VITALS: BP 136/64; PULSE 76; O2SAT 99; BMI 32.4
== END 2023-07-03 10:14 | disposition home or self-care (01) ==
PROVIDERS: PCP Internal Medicine; Visit Provider Nurse Practitioner Family
DX: I10 Essential (primary) hypertension (principal); E78.00 Pure hypercholesterolemia, unspecified
CPT/HCPCS: 99213

== ENCOUNTER 2023-07-13 07:34 | Outpatient (REF) | payer MEDICARE, MEDICAID, SELFPAY ==
[2023-07-13 08:48] LABS: Hematocrit 40.3 % (37.0-47.0); Hemoglobin 13.3 g/dl (12.0-16.0); Mean Corpuscular Volume 96.9 fL (80.0-98.0); Mean Platelet Volume 11.6 fL (9.4-12.3); Platelet Count 311 X10*3/uL (160-400); Red Blood Count 4.16 X10*6/uL (4.20-5.50); Red Cell Distribution Width 13.2 % (11.0-16.0); White Blood Count 6.9 X10*3/uL (4.8-10.8)
[2023-07-13 09:23] LABS: Alanine Aminotransferase 12 U/L (0-31); Albumin Level 4.1 g/dL (3.5-5.0); Alkaline Phosphatase 88 U/L (39-117); Anion Gap 12 (12-20); Aspartate Amino Transferase 14 U/L (5-31); Bilirubin Total 0.4 mg/dL (0.0-1.0); Blood Urea Nitrogen 15 mg/dL (9-16); Calcium 9.5 mg/dL (8.4-10.2); Carbon Dioxide 25 mmol/L (22-29); Chloride 106 mmol/L (96-108); Cholesterol 228 mg/dL (<200); Estimated Glomerular Filt Rate > 60; Glucose Fasting 96 mg/dL (60-99); HDL Cholesterol 49 mg/dL (>40); LDL Cholesterol Calculated 151 mg/dL (<100); Potassium 3.2 mmol/L (3.3-5.1); Sodium 140 mmol/L (135-145); Total Protein 7.5 g/dL (6.5-8.0); Triglycerides 141 mg/dL (<150)
== END 2023-07-13 07:35 | disposition home or self-care (01) ==
LOC: HO.LAB 07:34
PROVIDERS: Visit Provider Nurse Practitioner Family
DX: Z13.220 Encounter for screening for lipoid disorders (principal); Z13.0 Encounter for screening for diseases of the blood and blood-forming organs and certain disorders involving the immune mechanism; I10 Essential (primary) hypertension
CPT/HCPCS: 36415; 80053; 80061; 85027

== ENCOUNTER 2023-07-21 07:47 | Outpatient (REF) | payer MEDICARE, MEDICAID, SELFPAY | END 2023-07-21 07:48 | disposition home or self-care (01) | LOC: HO.LAB 07:47 | PROVIDERS: Visit Provider Nurse Practitioner Family | DX: E87.6 Hypokalemia (principal) | CPT/HCPCS: 36415; 84132 ==

== ENCOUNTER 2023-08-02 07:40 | Outpatient (REF) | payer MEDICARE, MEDICAID, SELFPAY ==
[2023-08-02 08:36] LABS: Potassium 3.8 mmol/L (3.3-5.1)
== END 2023-08-02 07:41 | disposition home or self-care (01) ==
LOC: HO.LAB 07:40
PROVIDERS: PCP Internal Medicine; Visit Provider Nurse Practitioner Family
DX: E87.6 Hypokalemia (principal)
CPT/HCPCS: 36415; 84132

== ENCOUNTER 2023-10-03 08:44 | Outpatient (AMB) | payer MEDICARE, MEDICAID, SELFPAY ==
[2023-10-03 08:57] VITALS: BP 166/102; PULSE 81; O2SAT 96; BMI 32.3
--- NOTE | 2023-10-03 08:57 | MHC.PC.OV ---
Vital Signs 10/03/23 08:57 Height 5 ft Weight 165 lb 4 oz BMI 32.3 BP 166/102 H Blood Pressure Location Lt brachial Position Sitting Pulse 81 Pulse Source Pulse Oximeter Pulse Oximetry (%) 96 Oxygen Delivery Method Room Air Intake Visit Reasons: Annual Exam Heat And Vent Aircraft Mechanic Required: No Accompanied by: Self / Same As Patient Allergies hydrochlorothiazide Adverse Reaction (Intermediate, Unverified 10/03/23 09:37) hypokalemia Medication List - Last Reconciled 10/03/23 by Carmen Velez MD acyclovir 5% (Zovirax) 1 appl topical QID 7 days blood pressure monitor (Blood Pressure Kit) As directed [cane As directed] cholecalciferol (vitamin D3) 50 mcg PO DAILY lisinopril 5 mg PO DAILY ropinirole 0.25 mg PO BEDTIME sennosides-docusate sodium 8.6-50 mg (Senna Plus) 2 tab-caps (2 x 8.6-50 mg) PO BEDTIME 30 days valacyclovir 1,000 mg PO BID Tobacco use date assessed: 03/21/23 Dental Screening Dental Screen Date: 10/03/23 Did you have a dental visit in the last 12 months?: Yes Did you have a dental problem in the last 6 months where you did not have access to dental care?: No Was dental information given to patient?: Patient has dentist HPI Annual Exam HPI Details 48-year-old obese female with GERD hypercholesterolemia migraine history generalized anxiety disorder hypertension coming in for physical exam last seen in June 2023. Mammogram is up-to-date Cologuard negative February 2023 patient has had episodes of hypokalemia. nausea , PFSH Medical History (Updated 10/03/23 @ 09:33 by Carmen Velez MD) Screen for sexually transmitted diseases Blood pressure elevated without history of HTN Herpes genitalis Colon cancer screening Breast cancer screening Constipation Elevated blood pressure reading Nausea Cough Breast density Plantar wart of right foot Nasal bone fracture History of lead exposure Restless leg syndrome GERD (gastroesophageal reflux disease) Hypercholesterolemia Migraine Suprapubic pain Sacroiliac joint somatic dysfunction Surgical History History of surgery H/O LEEP History of section History of tubal ligation Family History Father Mouth cancer Mother No problems noted. Sister Bipolar 1 disorder Maternal Aunt Breast cancer Other Mental health disorder Social History (Updated 10/03/23 @ 09:41 by Carmen Velez MD) Housing: Apartment Alcohol intake: current Alcohol intake frequency: holidays/special occasions only Comment: once a month 2 glasses Patient Tobacco Use Status: Never used Tobacco e-Cigarette/Vaping Use: Never Used Second Hand Smoke Exposure: No service: No Current occupational status: unemployed Current occupational exposures/hazards: No Cognitive needs: Yes (cane) Hearing needs: No Vision needs: Yes (Glasses) Female Reproductive History Menstrual Age of Menarche: 15 Questionnaire Thrive Questionnaire Date Thrive assessed: 03/21/23 NICOLAS-7 AMB Questionnaire NICOLAS-7 Date NICOLAS - 7 assessed: 03/21/23 Source: Developed by Drs. Kris Barrera, Kaylyn Back, Costa Powell and colleagues, with an educational tim from [employer]. Review of Systems Const Denies poor appetite and Denies weakness Eyes Denies no additional complaints ENT Reports Normal hearing present, Denies dizziness, Denies nasal congestion, Denies tinnitus and Denies sore throat Card Denies chest pain, Denies syncope, Denies rapid heart rate and Denies dyspnea Resp Denies cough and Denies dyspnea GI Denies change in stool character, Reports constipation, Denies diarrhea, Denies nausea and Denies vomiting Denies urinary frequency, Denies difficulty voiding and Denies dysuria Neuro Reports Normal hearing present, Denies confusion, Denies dizziness, Denies syncope and Denies weakness Psych Denies confusion Physical exam (Primary Care) Vital Signs: Last Vital Signs Pulse 81 10/03/23 08:57 BP 166/102 H 10/03/23 08:57 Pulse Ox 96 10/03/23 08:57 Oxygen Delivery Method Room Air 10/03/23 08:57 BMI result Body Mass Index 32.3 Tobacco/Smoking Status: Tobacco use Status Tobacco use date assessed 03/21/23 10/03/23 09:04 Patient Tobacco Use Status Never used Tobacco 10/03/23 09:04 e-Cigarette/Vaping Use Never Used 10/03/23 09:04 Thrive Assessment: Date of Thrive Assessment Date Thrive assessed 03/21/23 10/03/23 09:04 Const General: alert; No acute distress or confusion Orientation/consciousness: No confusion HENMT Head: Yes normocephalic Ears: external ears normal and TM's normal bilaterally Face and sinus: Yes normal facial exam Mouth: moist mucous membranes Throat: Yes tonsils normal Eyes Conjunctivae: conjunctivae normal Pupils: Equal, round and reactive pupils present and Pupil accommodation reflex normal Direct Ophthalmoscopy: normal light reflex Neck Neck: No lymphadenopathy Thyroid: Thyroid normal Chest Chest palpation & inspection: normal inspection of the chest Resp Effort & Inspection: normal respiratory effort and no audible wheezes Auscultation: clear to auscultation bilaterally Cardio Rate: regular rate Rhythm: regular rhythm Peripheral pulses: radial pulses present and dorsalis pedis present GI Inspection: Yes normal to inspection Palpation (GI): no masses Auscultation: normal bowel sounds and normoactive bowel sounds Rectal Exam - Female: deferred Skin General skin exam: no rashes or lesions noted Rashes: no rashes Neuro General: deep tendon reflexes 2+ bilaterally and No confusion Cranial nerves: Yes Equal, round and reactive pupils present, Yes Midline tongue present, Yes Normal hearing present and Yes Ability to bilaterally elevate shoulders present Cognition (Neuro): normal cognition Gait exam (Neuro): Normal gait present Motor exam (neuro): 5/5 motor strength present throughout Deep tendon reflexes (DTR's): Right brachioradialis reflex intensity grade: 2+, Left brachioradialis reflex intensity grade: 2+, Right patellar reflex intensity grade: 2+ and Left patellar reflex intensity grade: 2+ Extrem General: Yes normal to inspection and No edema Office Procedures Flu Questionnaire Does the patient have a severe egg allergy?: No Does the patient have severe life threatening allergies?: No Does the patient have a fever or illness today?: No Has the patient ever had Guillain-[place] Syndrome?: No Has the patient ever had any past reaction to a flu shot?: No Immunizations flu vacc [id number] 6mos up(PF) 60 mcg(15 mcgx4)/0.5 mL IM syringe Performing Provider: Carmen Velez MD Performing Location: [facility] Administered by: DERIAN Kerr on 10/03/23 09:09 Dose Route Admin Location Dispensed Lot Number Expiration Date NDC [employer] 0.5 mL IM Left Deltoid 0.5 mL [id number] 04/14/24 07962-138-07 [employer] VIS Given Date VIS Provided VIS Publication Date 10/03/23 Single Vaccine 21 Eligibility Eligibility Date Funding Source Not [facility] Eligible 10/03/23 Private Assessment and Plan Assessment & Plan (1) Annual physical exam: Code(s): Z00.00 - Encounter for general adult medical examination without abnormal findings (2) Hypertension: Code(s): I10 - Essential (primary) hypertension Plan: Continue with blood pressure medication. Decrease salt intake and exercise presently on hydrochlorothiazide 12.5 mg once a day (3) Hypercholesterolemia: Code(s): E78.00 - Pure hypercholesterolemia, unspecified Plan: Avoid fried foods, chicken skin, eggs, butter margarine, pastries and meat. Be it pork or beef they have a lot of cholesterol LDL goal of less than 130 and triglyceride of less than 150 (4) GERD (gastroesophageal reflux disease): Code(s): K21.9 - Gastro-esophageal reflux disease without esophagitis Plan: Avoid the foods that causes that usually spicy foods, tomato products, juices, coffee, soda and foods that your sensitive to. After eating do not lie down, allow 3-4 hours before in lie down. And keep the head of bed above 30 degrees to avoid the acid from going up. (5) Migraine: Code(s): G43.909 - Migraine, unspecified, not intractable, without status migrainosus Plan: Have adequate sleep, keep active keep well-hydrated Orders: Orders Influenza [id number] Immunization Today Z23 - Encounter for immunization Complete Blood Count Auto Diff 3 Months E78.00 - Pure hypercholesterolemia, unspecified Comprehensive Met. Panel 3 Months E78.00 - Pure hypercholesterolemia, unspecified Thyroid Stimulating Hormone 3 Months E78.00 - Pure hypercholesterolemia, unspecified Free T4 (Free Thyroxine) 3 Months E78.00 - Pure hypercholesterolemia, unspecified Lipid Panel 3 Months E78.00 - Pure hypercholesterolemia, unspecified Vitamin B12 and Folate 3 Months E78.00 - Pure hypercholesterolemia, unspecified Vitamin D 25-OH Total 3 Months E78.00 - Pure hypercholesterolemia, unspecified Medications: New lisinopril 5 mg PO DAILY 30 tabs 3RF I10 - Essential (primary) hypertension Refilled cholecalciferol (vitamin D3) 50 mcg PO DAILY 90 tabs 3RF R79.89 - Other specified abnormal findings of blood chemistry ropinirole administer 1-3 hours before bedtime 0.25 mg PO BEDTIME 90 tabs 2RF G25.81 - Restless legs syndrome sumatriptan succinate (Imitrex) do not exceed 4 doses per 24 hrs 50 mg PO Q2-4H PRN 14 tabs 11RF migraine headache G43.909 - Migraine, unspecified, not intractable, without status migrainosus omeprazole 20 mg PO DAILY 90 caps 3RF K21.9 - Gastro-esophageal reflux disease without esophagitis Discontinued hydrochlorothiazide Discontinued Reason: Doctor's Order 12.5 mg PO DAILY 30 tabs 4RF I10 - Essential (primary) hypertension Coding Level of Care Code Est Pt Prev Care 40-64y(67266) Diagnoses Annual physical exam Z00.00 Hypertension I10 Hypercholesterolemia E78.00 GERD (gastroesophageal reflux disease) K21.9 Migraine G43.909
== END 2023-10-03 09:54 | disposition home or self-care (01) ==
PROVIDERS: Visit Provider Internal Medicine
DX: Z23 Encounter for immunization (principal); Z00.00 Encounter for general adult medical examination without abnormal findings; I10 Essential (primary) hypertension; E78.00 Pure hypercholesterolemia, unspecified; K21.9 Gastro-esophageal reflux disease without esophagitis; G43.909 Migraine, unspecified, not intractable, without status migrainosus
CPT/HCPCS: 90471; 90686; 99396

== ENCOUNTER 2023-11-17 08:28 | Outpatient (REF) | payer MEDICARE, MEDICAID, SELFPAY | END 2023-11-17 08:29 | disposition home or self-care (01) | LOC: HO.MAMMO 08:28 | PROVIDERS: PCP Internal Medicine; Visit Provider Internal Medicine | DX: Z12.31 Encounter for screening mammogram for malignant neoplasm of breast (principal) | CPT/HCPCS: 77063; 77067 ==

== ENCOUNTER → 2023-11-17 08:30 | Outpatient (BNV) | payer MEDICARE, MEDICAID, SELFPAY | PROVIDERS: PCP Internal Medicine; Visit Provider Radiology Diagnostic Radiology | DX: Z12.31 Encounter for screening mammogram for malignant neoplasm of breast (principal) | CPT/HCPCS: 77063; 77067 ==

== ENCOUNTER 2023-12-05 07:34 | Outpatient (REF) | payer MEDICARE, MEDICAID, SELFPAY ==
[2023-12-05 07:59] LABS: MANUAL DIFF FLAG NO
[2023-12-05 08:37] LABS: Basophils Percent Auto 0.4 % (0-2); Eosinophils Absolute Auto 0.1 X10*3/uL (0.0-0.4); Eosinophils Percent Auto 1.1 % (0-4); Hematocrit 39.9 % (37.0-47.0); Imm Gran Abs Auto 0.02 X10*3/uL (0.00-0.03); Imm Gran Pct Auto 0.3 % (0.0-0.4); Lymphocytes Absolute Auto 2.9 X10*3/uL (1.2-4.9); Mean Corpuscular HGB Conc 32.6 g/dl (31.0-35.0); Mean Corpuscular Hemoglobin 31.3 pg (27.0-33.0); Mean Corpuscular Volume 96.1 fL (80.0-98.0); Mean Platelet Volume 11.8 fL (9.4-12.3); Monocytes Absolute Auto 0.4 X10*3/uL (0.1-1.2); Monocytes Percent Auto 6.1 % (2-11); Neutrophils Absolute Auto 3.6 x10*3/uL (2.0-8.3); Neutrophils Percent Auto 51.1 % (45-73); Platelet Count 251 X10*3/uL (160-400); Red Blood Count 4.15 X10*6/uL (4.20-5.50); White Blood Count 7.1 X10*3/uL (4.8-10.8)
[2023-12-05 09:05] LABS: Alanine Aminotransferase 10 U/L (0-31); Albumin Level 4.2 g/dL (3.5-5.0); Alkaline Phosphatase 75 U/L (39-117); Anion Gap 12 (12-20); Aspartate Amino Transferase 12 U/L (5-31); Bilirubin Total 0.3 mg/dL (0.0-1.0); Blood Urea Nitrogen 14 mg/dL (9-16); Calcium 9.6 mg/dL (8.4-10.2); Carbon Dioxide 26 mmol/L (22-29); Chloride 107 mmol/L (96-108); Cholesterol 243 mg/dL (<200); Estimated Glomerular Filt Rate > 60; Glucose Random 90 mg/dL (60-115); HDL Cholesterol 46 mg/dL (>40); LDL Cholesterol Calculated 168 mg/dL (<100); Potassium 3.7 mmol/L (3.3-5.1); Sodium 141 mmol/L (135-145); Total Protein 7.6 g/dL (6.5-8.0); Triglycerides 148 mg/dL (<150)
[2023-12-05 09:27] LABS: Free T4 (Free Thyroxine) 0.88 ng/dL (0.71-1.85); Thyroid Stimulating Hormone 1.02 uIU/mL (0.32-4.0); Vitamin D 25-OH Total 39.2 ng/mL (>30)
[2023-12-05 09:32] LABS: Folate 9.6 ng/mL (> or = 4.0); Vitamin B12 284 pg/mL (200-900)
== END 2023-12-05 07:35 | disposition home or self-care (01) ==
LOC: HO.LAB 07:34
PROVIDERS: PCP Internal Medicine; Visit Provider Internal Medicine
DX: E78.00 Pure hypercholesterolemia, unspecified (principal)
CPT/HCPCS: 36415; 80053; 80061; 82306; 82607; 82746; 84439; 84443; 85025

== ENCOUNTER 2023-12-11 16:43 | Outpatient (AMB) | payer MEDICARE, MEDICAID, SELFPAY ==
--- NOTE | 2023-12-11 16:48 | MHC.PC.OV ---
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: No Allergies hydrochlorothiazide Adverse Reaction (Intermediate, Verified 12/11/23 16:50) hypokalemia Medication List - Last Reconciled 12/11/23 by Carmen Velez MD acyclovir 5% (Zovirax) 1 appl topical QID 7 days blood pressure monitor (Blood Pressure Kit) As directed [cane As directed] cholecalciferol (vitamin D3) 50 mcg PO DAILY omeprazole 20 mg PO DAILY ropinirole 0.25 mg PO BEDTIME sennosides-docusate sodium 8.6-50 mg (Senna Plus) 2 tab-caps (2 x 8.6-50 mg) PO BEDTIME 30 days sumatriptan succinate (Imitrex) 50 mg PO Q2-4H PRN valacyclovir 1,000 mg PO BID Tobacco use date assessed: 12/11/23 HPI 2 month f/u HPI Details 48-year-old obese female with hypertension hypercholesterolemia GERD migraine last seen in September 2023. Patient is here for follow-up. Mammogram is up-to-date Cologuard test up-to-date. BP at home 107/82, 104/78 107/82 [facility] Medical History (Updated 10/03/23 @ 09:33 by Carmen Velez MD) Screen for sexually transmitted diseases Blood pressure elevated without history of HTN Herpes genitalis Colon cancer screening Breast cancer screening Constipation Elevated blood pressure reading Nausea Cough Breast density Plantar wart of right foot Nasal bone fracture History of lead exposure Restless leg syndrome GERD (gastroesophageal reflux disease) Hypercholesterolemia Migraine Suprapubic pain Sacroiliac joint somatic dysfunction Surgical History History of surgery H/O LEEP History of section History of tubal ligation Family History Father Mouth cancer Mother No problems noted. Sister Bipolar 1 disorder Maternal Aunt Breast cancer Other Mental health disorder Social History (Updated 10/03/23 @ 09:41 by Carmen Velez MD) Housing: Apartment Alcohol intake: current Alcohol intake frequency: holidays/special occasions only Comment: once a month 2 glasses Patient Tobacco Use Status: Never used Tobacco e-Cigarette/Vaping Use: Never Used Second Hand Smoke Exposure: No service: No Current occupational status: unemployed Current occupational exposures/hazards: No Cognitive needs: Yes (cane) Hearing needs: No Vision needs: Yes (Glasses) Female Reproductive History Menstrual Age of Menarche: 15 Questionnaire Thrive Questionnaire Date Thrive assessed: 03/21/23 AUDIT C Alcohol Use Questionnaire (AUDIT-C) 1. How often do you have a drink containing alcohol?: Monthly or less 2. How many drinks containing alcohol do you have on a typical day when you are drinking?: 1 or 2 3. How often do you have six or more drinks on one occasion?: Never Total Score: 1 Score Reviewed/Action Taken: No NICOLAS-7 AMB Questionnaire NICOLAS-7 Date NICOLAS - 7 assessed: 03/21/23 Source: Developed by Drs. Kris Barrera, Kaylyn Back, Costa Powell and colleagues, with an educational tim from [employer]. Physical exam (Primary Care) Tobacco/Smoking Status: Tobacco use Status Tobacco use date assessed 03/21/23 10/03/23 09:04 Patient Tobacco Use Status Never used Tobacco 10/03/23 09:41 e-Cigarette/Vaping Use Never Used 10/03/23 09:41 Thrive Assessment: Date of Thrive Assessment Date Thrive assessed 03/21/23 10/03/23 09:04 Const General: alert; No acute distress Eyes Conjunctivae: conjunctivae normal Resp Auscultation: clear to auscultation bilaterally Cardio Rate: regular rate Rhythm: regular rhythm GI Inspection: Yes normal to inspection Extrem General: Yes normal to inspection and No edema Assessment and Plan Assessment & Plan (1) Hypertension: Code(s): I10 - Essential (primary) hypertension Plan: Continue with blood pressure medication. Decrease salt intake and exercise presently on lisinopril 5 mg once a day but with the BP low SBP - will discontinue the lisinopril; (2) Hypercholesterolemia: Code(s): E78.00 - Pure hypercholesterolemia, unspecified Plan: Avoid fried foods, chicken skin, eggs, butter margarine, pastries and meat. Be it pork or beef they have a lot of cholesterol LDL goal of less than 130 and triglyceride of less than 150 (3) GERD (gastroesophageal reflux disease): Code(s): K21.9 - Gastro-esophageal reflux disease without esophagitis Plan: Avoid the foods that causes that usually spicy foods, tomato products, juices, coffee, soda and foods that your sensitive to. After eating do not lie down, allow 3-4 hours before in lie down. And keep the head of bed above 30 degrees to avoid the acid from going up. (4) Generalized anxiety disorder: Code(s): F41.1 - Generalized anxiety disorder Plan: Stable Orders: Orders Lipid Panel 3 Months E78.00 - Pure hypercholesterolemia, unspecified Comprehensive Met. Panel 3 Months E78.00 - Pure hypercholesterolemia, unspecified Medications: Discontinued lisinopril Discontinued Reason: Doctor's Order 5 mg PO DAILY 30 tabs 3RF I10 - Essential (primary) hypertension Coding Level of Care Code Est Pt Level 4 (13166) Diagnoses Hypertension I10 Hypercholesterolemia E78.00 GERD (gastroesophageal reflux disease) K21.9 Generalized anxiety disorder F41.1
[2023-12-11 16:49] VITALS: BP 98/70; PULSE 79; O2SAT 97; BMI 32.0
== END 2023-12-11 17:03 | disposition home or self-care (01) ==
PROVIDERS: PCP Internal Medicine; Visit Provider Internal Medicine
DX: I10 Essential (primary) hypertension (principal); E78.00 Pure hypercholesterolemia, unspecified; K21.9 Gastro-esophageal reflux disease without esophagitis; F41.1 Generalized anxiety disorder
CPT/HCPCS: 99214

== ENCOUNTER 2023-12-19 11:00 | Outpatient (REF) | payer MEDICARE, MEDICAID, SELFPAY ==
[2023-12-20 01:52] LABS: CT PCR NOT DETECTED (Not Detect.); NG PCR NOT DETECTED (Not Detect.)
[2023-12-20 14:49] LABS: BV Int Neg Control Negative (Negative); BV Int Pos Control Positive (Positive)
== END 2023-12-19 11:01 | disposition home or self-care (01) ==
LOC: HO.LAB 11:00
PROVIDERS: PCP Internal Medicine; Visit Provider Advanced Practice Midwife
DX: Z01.419 Encounter for gynecological examination (general) (routine) without abnormal findings (principal); Z20.2 Contact with and (suspected) exposure to infections with a predominantly sexual mode of transmission
CPT/HCPCS: 0353U; 87480; 87510; 87660; G0101

== ENCOUNTER 2023-12-19 11:00 | Outpatient (AMB) | payer MEDICARE, MEDICAID, SELFPAY ==
[2023-12-19 11:14] VITALS: BP 128/76; BMI 32.8
--- NOTE | 2023-12-19 11:14 | A.OFFVIS_ITS ---
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 Emergency Management Coordinator Required: No Information Interpreted: clinical only Dry Kiln Feeder: Dry Kiln Feeder Present Allergies hydrochlorothiazide Adverse Reaction (Intermediate, Verified 12/19/23 11:15) hypokalemia Medication List - Last Reconciled 12/19/23 by Noni Rivera CNM cholecalciferol (vitamin D3) 50 mcg PO DAILY omeprazole 20 mg PO DAILY ropinirole 0.25 mg PO BEDTIME sennosides-docusate sodium 8.6-50 mg (Senna Plus) 2 tab-caps (2 x 8.6-50 mg) PO BEDTIME 30 days valacyclovir 1,000 mg PO BID Is last menstrual period known: Yes HPI 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 Her only health concerns she was told that her cholesterol is a little bit high so she has been trying to avoid all the good things that make her cholesterol high and she has been running on her treadmill about 10 minutes a day. She will has follow-up with Dr. Kamara in about 3 months and will have repeat blood work then. She had abnormal Pap smear many years ago but normal since. [facility] Medical History (Updated 12/19/23 @ 11:45 by Noni Rivera CNM) Screen for sexually transmitted diseases Blood pressure elevated without history of HTN Herpes genitalis Colon cancer screening Breast cancer screening Constipation Elevated blood pressure reading Nausea Cough Breast density Plantar wart of right foot Nasal bone fracture History of lead exposure Restless leg syndrome GERD (gastroesophageal reflux disease) Hypercholesterolemia Migraine Suprapubic pain Sacroiliac joint somatic dysfunction Surgical History (Updated 12/19/23 @ 12:00 by Noni Rivera CNM) History of surgery H/O LEEP History of section History of tubal ligation Family History Father Mouth cancer Mother No problems noted. Sister Bipolar 1 disorder Maternal Aunt Breast cancer Other Mental health disorder Social History (Updated 10/03/23 @ 09:41 by Carmen Velez MD) Housing: Apartment Alcohol intake: current Alcohol intake frequency: holidays/special occasions only Comment: once a month 2 glasses Patient Tobacco Use Status: Never used Tobacco e-Cigarette/Vaping Use: Never Used Second Hand Smoke Exposure: No service: No Current occupational status: unemployed Current occupational exposures/hazards: No Cognitive needs: Yes (cane) Hearing needs: No Vision needs: Yes (Glasses) Female Reproductive History Menstrual Age of Menarche: 15 Duration of menses: 3-5 days control method: permanent sterilization Total pregnancies: 4 Full term: 3 Date of last pap smear: 09/13/22 (negative,08/12/2019,negative) History of abnormal pap smear: Yes (H/O [place],2004) Physical Exam Vital Signs: Last Vital Signs BP 128/76 12/19/23 11:14 BMI result Body Mass Index 32.8 Assessment & Plan Assessment & Plan (1) Herpes genitalis: Comment: HSV type 2 isolated at 05/30/23 visit. Patient treated at initial assessment teaching done. Code(s): A60.00 - Herpesviral infection of urogenital system, unspecified (2) Well woman exam with routine gynecological exam: Code(s): Z01.419 - Encounter for gynecological examination (general) (routine) without abnormal findings (3) H/O LEEP: Comment: 09/13/2022 Pap is negative with negative HPV;next pap 3-5 y Code(s): Z98.890 - Other specified postprocedural states Plan -----Discussed in this visit the following: healthy balanced diet, regular and consistent exercise, getting recommended health screens, doing the best she can for her particular health concerns, kegel exercises, pap smear screening and followup recommendations, mammography screening and SBE, normal changes in cycles in her life stage--- . Patient states she is up-to-date with everything and doing well and life is good right now she has no concerns about other STDs but excepted testing with the exam no concerns about the herpes either. She is monogamous with her with miya thao . Her 3 kids are ages 24 down to 11. Coding Level of Care Code Est Pt Prev Care 40-64y(10838) Diagnoses Herpes genitalis A60.00 Well woman exam with routine gynecological exam Z01.419 H/O LEEP Z98.890
== END 2023-12-19 12:03 | disposition home or self-care (01) ==
LOC: HO.HWSM 11:01
PROVIDERS: PCP Internal Medicine; Visit Provider Advanced Practice Midwife
DX: Z01.419 Encounter for gynecological examination (general) (routine) without abnormal findings (principal); A60.00 Herpesviral infection of urogenital system, unspecified
CPT/HCPCS: G0101

== ENCOUNTER 2024-03-14 08:39 | Outpatient (REF) | payer MEDICARE, MEDICAID, SELFPAY ==
[2024-03-14 10:00] LABS: Alanine Aminotransferase 11 U/L (0-31); Albumin Level 4.3 g/dL (3.5-5.0); Alkaline Phosphatase 83 U/L (39-117); Anion Gap 13 (12-20); Aspartate Amino Transferase 13 U/L (5-31); Bilirubin Total 0.4 mg/dL (0.0-1.0); Blood Urea Nitrogen 13 mg/dL (9-16); Calcium 9.7 mg/dL (8.4-10.2); Carbon Dioxide 24 mmol/L (22-29); Chloride 106 mmol/L (96-108); Cholesterol 259 mg/dL (<200); Estimated Glomerular Filt Rate > 60; Glucose Random 82 mg/dL (60-115); HDL Cholesterol 61 mg/dL (>40); LDL Cholesterol Calculated 171 mg/dL (<100); Potassium 3.7 mmol/L (3.3-5.1); Sodium 139 mmol/L (135-145); Total Protein 7.8 g/dL (6.5-8.0); Triglycerides 137 mg/dL (<150)
== END 2024-03-14 08:40 | disposition home or self-care (01) ==
LOC: HO.LAB 08:39
PROVIDERS: PCP Internal Medicine; Visit Provider Internal Medicine
DX: E78.00 Pure hypercholesterolemia, unspecified (principal)
CPT/HCPCS: 36415; 80053; 80061

== ENCOUNTER 2024-03-18 09:53 | Outpatient (AMB) | payer MEDICARE, MEDICAID, SELFPAY ==
[2024-03-18 09:54] VITALS: BP 122/86; PULSE 88; BMI 33.2
--- NOTE | 2024-03-18 09:54 | MHC.PC.OV ---
Vital Signs 03/18/24 09:54 Height 5 ft Weight 170 lb 0.6 oz BMI 33.2 BP 122/86 Blood Pressure Location Lt brachial Position Sitting Pulse 88 Pulse Source Pulse Oximeter Oxygen Delivery Method Room Air Intake Visit Reasons: 3 month f/u Intake Note: Patient is here to follow up on 3 months Business Information Consultant Required: No Allergies hydrochlorothiazide Adverse Reaction (Intermediate, Verified 03/18/24 09:55) hypokalemia Tobacco use date assessed: 03/18/24 Dental Screening Dental Screen Date: 03/18/24 Did you have a dental visit in the last 12 months?: Yes Did you have a dental problem in the last 6 months where you did not have access to dental care?: No Was dental information given to patient?: Patient has dentist HPI 3 month f/u HPI Details 48 year old obese female with history of hypercholesterolemia, hypertension, GERD, and generalized anxiety disorder last seen November 2023 coming in for follow up. Patient saw her property management coordinator December 2023 and mammogram and PAP are up to date. Patient is up to date for colorectal cancer screening and cologuard was completed February 2023. Cholesterol is elevated in last blood work. [facility] Medical History (Updated 12/19/23 @ 11:45 by Noni Rivera CNM) Screen for sexually transmitted diseases Blood pressure elevated without history of HTN Herpes genitalis Colon cancer screening Breast cancer screening Constipation Elevated blood pressure reading Nausea Cough Breast density Plantar wart of right foot Nasal bone fracture History of lead exposure Restless leg syndrome GERD (gastroesophageal reflux disease) Hypercholesterolemia Migraine Suprapubic pain Sacroiliac joint somatic dysfunction Surgical History (Updated 12/19/23 @ 12:00 by Noni Rivera CNM) History of surgery H/O LEEP History of section History of tubal ligation Family History Father Mouth cancer Mother No problems noted. Sister Bipolar 1 disorder Maternal Aunt Breast cancer Other Mental health disorder Social History (Updated 10/03/23 @ 09:41 by Carmen Velez MD) Housing: Apartment Alcohol intake: current Alcohol intake frequency: holidays/special occasions only Comment: once a month 2 glasses Patient Tobacco Use Status: Never used Tobacco e-Cigarette/Vaping Use: Never Used Second Hand Smoke Exposure: No service: No Current occupational status: unemployed Current occupational exposures/hazards: No Cognitive needs: Yes (cane) Hearing needs: No Vision needs: Yes (Glasses) Female Reproductive History Menstrual Age of Menarche: 15 Questionnaire Thrive Questionnaire Date Thrive assessed: 03/18/24 I am a: Patient What is your living situation today?: I have a steady place to live Within the past 12 months, did the food you bought not last and you didn't have the money to get more?: Never true Within the past 12 months, did you worry whether your food would run out before you got money to buy more?: Never true Do you have trouble paying for medicines?: No Do you have trouble getting transportation to medical appointments?: No Do you have trouble paying your heating and electricity bill?: No Do you have trouble taking care of your child, family member or friend?: No Do you have trouble with day-to-day activities such as bathing, preparing meals, shopping, managing finances, etc.?: No Are you currently unemployed and looking for a job?: No Are you interested in more education?: No Please select the resources that you would like help with: None Currently or been in a relationship where the following occur: no concerns reported THRIVE Score: 0 AUDIT C Alcohol Use Questionnaire (AUDIT-C) 1. How often do you have a drink containing alcohol?: Monthly or less 2. How many drinks containing alcohol do you have on a typical day when you are drinking?: 1 or 2 3. How often do you have six or more drinks on one occasion?: Never Total Score: 1 Score Reviewed/Action Taken: No NICOLAS-7 AMB Questionnaire NICOLAS-7 Date NICOLAS - 7 assessed: 03/18/24 Source: Developed by Drs. Kris Barrera, Kaylyn Back, Costa Powell and colleagues, with an educational tim from [employer]. Physical exam (Primary Care) Vital Signs: Last Vital Signs Pulse 88 03/18/24 09:54 BP 122/86 03/18/24 09:54 Oxygen Delivery Method Room Air 03/18/24 09:54 BMI result Body Mass Index 33.2 Tobacco/Smoking Status: Tobacco use Status Tobacco use date assessed 03/18/24 03/18/24 09:55 Patient Tobacco Use Status Never used Tobacco 03/18/24 09:55 e-Cigarette/Vaping Use Never Used 03/18/24 09:55 Thrive Assessment: Date of Thrive Assessment Date Thrive assessed 03/18/24 03/18/24 09:55 Currently or been in a relationship where the following occur: no concerns reported Const General: alert; No acute distress Eyes Conjunctivae: conjunctivae normal Resp Auscultation: clear to auscultation bilaterally Cardio Rate: regular rate Rhythm: regular rhythm GI Inspection: Yes normal to inspection Extrem General: Yes normal to inspection and No edema Assessment and Plan Assessment & Plan (1) Hypertension: Code(s): I10 - Essential (primary) hypertension Plan: Continue with blood pressure medication. Decrease salt intake and exercise continue to monitor (2) Hypercholesterolemia: Code(s): E78.00 - Pure hypercholesterolemia, unspecified Plan: Avoid fried foods, chicken skin, eggs, butter margarine, pastries and meat. Be it pork or beef they have a lot of cholesterol LDL goal of less than 130 and triglyceride of less than 150 (3) GERD (gastroesophageal reflux disease): Code(s): K21.9 - Gastro-esophageal reflux disease without esophagitis Plan: Avoid the foods that causes that usually spicy foods, tomato products, juices, coffee, soda and foods that your sensitive to. After eating do not lie down, allow 3-4 hours before in lie down. And keep the head of bed above 30 degrees to avoid the acid from going up. On omeprazole (4) Migraine: Code(s): G43.909 - Migraine, unspecified, not intractable, without status migrainosus Plan: Have an adequate sleep, keep well hydrated, eat healthy and keep active (5) Generalized anxiety disorder: Code(s): F41.1 - Generalized anxiety disorder Plan: Stable Orders: Orders Lipid Panel 3 Months E78.00 - Pure hypercholesterolemia, unspecified Comprehensive Met. Panel 3 Months E78.00 - Pure hypercholesterolemia, unspecified Medications: New simvastatin 5 mg PO BEDTIME 30 tabs 4RF E78.00 - Pure hypercholesterolemia, unspecified Coding Level of Care Code Est Pt Level 4 (41676) Diagnoses Hypertension I10 Hypercholesterolemia E78.00 GERD (gastroesophageal reflux disease) K21.9 Migraine G43.909 Generalized anxiety disorder F41.1
== END 2024-03-18 10:43 | disposition home or self-care (01) ==
PROVIDERS: PCP Internal Medicine; Visit Provider Internal Medicine
DX: I10 Essential (primary) hypertension (principal); E78.00 Pure hypercholesterolemia, unspecified; K21.9 Gastro-esophageal reflux disease without esophagitis; G43.909 Migraine, unspecified, not intractable, without status migrainosus; F41.1 Generalized anxiety disorder
CPT/HCPCS: 99214

== ENCOUNTER 2024-07-10 07:59 | Emergency (ER) | payer MEDICARE, MEDICAID, SELFPAY ==
[2024-07-10 08:00] VITALS: BP 157/92; PULSE 88; RESP 19; TEMP 36.6; O2SAT 98; BMI 33.2
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
[2024-07-10] MEDS: Diphth,Pertus(ACell),Tet Adult 0.5 ML SYRINGE IM (10:07)
[2024-07-10] MEDS: Bacitracin Oint 0.9 GM PACKET 1 APPL TOPICAL (10:07)
[2024-07-10 10:24] VITALS: BP 157/92; PULSE 88; RESP 19; TEMP 36.6; O2SAT 98
== END 2024-07-10 10:25 | disposition home or self-care (01) ==
PROVIDERS: Emergency Provider Student in an Organized Health Care Education/Training Program; PCP Internal Medicine
DX: T25.291A Burn of second degree of multiple sites of right ankle and foot, initial encounter (principal); X12.XXXA Contact with other hot fluids, initial encounter; Y93.G3 Activity, cooking and baking; Y92.039 Unspecified place in apartment as the place of occurrence of the external cause; Y99.9 Unspecified external cause status; I10 Essential (primary) hypertension; Z23 Encounter for immunization
CPT/HCPCS: 16020; 90471; 90715; 99282; 99284

== ENCOUNTER 2024-07-22 07:52 | Outpatient (REF) | payer MEDICARE, MEDICAID, SELFPAY ==
[2024-07-22 09:11] LABS: Alanine Aminotransferase 14 U/L (0-31); Albumin Level 4.6 g/dL (3.5-5.0); Alkaline Phosphatase 94 U/L (39-117); Anion Gap 9 (12-20); Aspartate Amino Transferase 13 U/L (5-31); Bilirubin Total 0.3 mg/dL (0.0-1.0); Blood Urea Nitrogen 14 mg/dL (9-16); Calcium 10.2 mg/dL (8.4-10.2); Carbon Dioxide 29 mmol/L (22-29); Chloride 107 mmol/L (96-108); Cholesterol 202 mg/dL (<200); Estimated Glomerular Filt Rate > 60; Glucose Random 99 mg/dL (60-115); HDL Cholesterol 46 mg/dL (>40); LDL Cholesterol Calculated 112 mg/dL (<100); Potassium 4.3 mmol/L (3.3-5.1); Sodium 141 mmol/L (135-145); Triglycerides 221 mg/dL (<150)
== END 2024-07-22 07:53 | disposition home or self-care (01) ==
LOC: HO.LAB 07:52
PROVIDERS: PCP Internal Medicine; Visit Provider Internal Medicine
DX: E78.00 Pure hypercholesterolemia, unspecified (principal)
CPT/HCPCS: 36415; 80053; 80061

== ENCOUNTER 2024-07-24 08:37 | Outpatient (AMB) | payer MEDICARE, MEDICAID, SELFPAY ==
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
[2024-07-24 08:57] VITALS: BP 100/70; BMI 33.7
== END 2024-07-24 09:21 | disposition home or self-care (01) ==
PROVIDERS: PCP Internal Medicine; Visit Provider Internal Medicine
DX: T24.001A Burn of unspecified degree of unspecified site of right lower limb, except ankle and foot, initial encounter (principal); E78.00 Pure hypercholesterolemia, unspecified; G43.909 Migraine, unspecified, not intractable, without status migrainosus

== ENCOUNTER → 2024-07-24 08:37 | Outpatient (BNVA) | payer MEDICARE, MEDICAID, SELFPAY | PROVIDERS: PCP Internal Medicine; Visit Provider Internal Medicine | DX: T24.001D Burn of unspecified degree of unspecified site of right lower limb, except ankle and foot, subsequent encounter (principal); E78.00 Pure hypercholesterolemia, unspecified; G43.909 Migraine, unspecified, not intractable, without status migrainosus | CPT/HCPCS: 96127; 99212 ==

== ENCOUNTER 2024-10-15 10:56 | Outpatient (AMB) | payer MEDICARE, MEDICAID, SELFPAY ==
--- NOTE | 2024-10-15 10:58 | MHC.PC.OV ---
Vital Signs 10/15/24 11:01 Height 5 ft Weight 171 lb 2 oz BMI 33.4 BP 114/80 Blood Pressure Location Lt brachial Position Sitting Pulse 76 Pulse Source Pulse Oximeter Pulse Oximetry (%) 94 Oxygen Delivery Method Room Air Intake Visit Reasons: Annual PE Allergies amoxicillin [From Augmentin] Adverse Reaction (Intermediate, Verified 10/15/24 11:07) Rash clavulanic acid [From Augmentin] Adverse Reaction (Intermediate, Verified 10/15/24 11:07) Rash hydrochlorothiazide Adverse Reaction (Intermediate, Verified 10/15/24 11:07) hypokalemia Medication List - Last Reconciled 10/15/24 by Carmen Velez MD cholecalciferol (vitamin D3) 50 mcg PO DAILY omeprazole 20 mg PO DAILY ropinirole 0.25 mg PO BEDTIME sennosides-docusate sodium 8.6-50 mg (Senna Plus) 2 tab-caps (2 x 8.6-50 mg) PO BEDTIME 30 days silver sulfadiazine 1% (Silvadene) 1 appl topical DAILY simvastatin 5 mg PO BEDTIME Tobacco use date assessed: 10/15/24 Dental Screening Dental Screen Date: 10/15/24 Did you have a dental visit in the last 12 months?: Yes Did you have a dental problem in the last 6 months where you did not have access to dental care?: No Was dental information given to patient?: Patient has dentist HPI Annual PE HPI Details dizzy, BPPV, The patient is a 49-year-old female presenting for a wellness exam and management of hypercholesterolemia, dizziness, and constipation. She had blood work in July which indicated a reduction in low-density lipoprotein (LDL) cholesterol from 171 mg/dL to 112 mg/dL. Dizziness has been a persistent issue, occurring approximately twice a week, predominantly when transitioning from a lying to a standing position, suggestive of benign paroxysmal positional vertigo. The dizziness does not occur while walking or standing still. She experiences constipation, which has been managed with Milburn, although she needs to adjust the dosage due to occasional diarrhea. There is no history of nausea or vomiting associated with the dizziness. The patient also reports occasional blurry vision and has been advised to monitor ocular pressure for high intraocular pressure. She has a family history of cancer and cerebrovascular events, with her sister having experienced a mini-stroke. - Vitamin D supplementation continued - Flu vaccine planned - Monitoring of cholesterol levels with improvement noted - Advised on dietary and lifestyle factors to manage cholesterol - Encouraged hydration to potentially alleviate dizziness - Alcohol consumption: approximately two glasses monthly - No use of tobacco or recreational drugs - Family includes a sister who had a mini-stroke - Reports frequent cooking, especially during holidays - Eyes: Reports occasional blurry vision - Gastrointestinal: Denies nausea, vomiting; reports constipation managed with medication - Musculoskeletal: Denies any recent trauma or falls affecting arm pain - Neurological: Reports dizziness twice a week - Urinary: Reports waking up twice nightly to urinate - Blood cholesterol level showed LDL reduced from 171 mg/dL to 112 mg/dL - Blood pressure last recorded at 114/80 mmHg [facility] Medical History (Updated 10/15/24 @ 11:28 by Carmen Velez MD) Hypertension Screen for sexually transmitted diseases Herpes genitalis Colon cancer screening Breast cancer screening Constipation Elevated blood pressure reading Nausea Cough Breast density Plantar wart of right foot Nasal bone fracture History of lead exposure Restless leg syndrome GERD (gastroesophageal reflux disease) Hypercholesterolemia Migraine Suprapubic pain Sacroiliac joint somatic dysfunction Surgical History History of surgery H/O LEEP History of section History of tubal ligation Family History (Updated 10/15/24 @ 11:14 by Carmen Velez MD) Father Mouth cancer Mother No problems noted. Sister Bipolar 1 disorder CVA (cerebral vascular accident) Maternal Aunt Breast cancer Other Mental health disorder Social History Housing: Apartment Alcohol intake: current Alcohol intake frequency: holidays/special occasions only Comment: once a month 2 glasses Patient Tobacco Use Status: Never used Tobacco e-Cigarette/Vaping Use: Never Used Second Hand Smoke Exposure: No service: No Current occupational status: unemployed Current occupational exposures/hazards: No Cognitive needs: Yes (cane) Hearing needs: No Vision needs: Yes (Glasses) Female Reproductive History Menstrual Age of Menarche: 15 Questionnaire PHQ-9 Over the last 2 weeks, how often have you been bothered by any of the following problems? 1. Little interest or pleasure in doing things: not at all 2. Feeling down, depressed, or hopeless: not at all 3. Trouble falling or staying asleep, or sleeping too much: not at all 4. Feeling tired or having little energy: not at all 5. Poor appetite or overeating: not at all 6. Feeling bad about yourself - or that you are a failure or have let yourself or your family down: not at all 7. Trouble concentrating on things, such as reading the newspaper or watching television: not at all 8. Moving or speaking so slowly that other people could have noticed. Or the opposite - being so fidgety or restless that you have been moving around a lot more than usual: not at all 9. Thoughts that you would be better off or of hurting yourself in some way: not at all Total score: 0 Depression Screening Interpretation: Negative Depression Screening Done: Yes 24488 - PHQ-9 Billing: Yes Source: Developed by Drs. Kris Barrera, Kaylyn Back, Costa Powell and colleagues, with an educational tim from [employer]. Thrive Questionnaire Date Thrive assessed: 10/15/24 I am a: Patient What is your living situation today?: I have a steady place to live Within the past 12 months, did the food you bought not last and you didn't have the money to get more?: Never true Within the past 12 months, did you worry whether your food would run out before you got money to buy more?: Never true Do you have trouble paying for medicines?: No Do you have trouble getting transportation to medical appointments?: No Do you have trouble paying your heating and electricity bill?: No Do you have trouble taking care of your child, family member or friend?: No Do you have trouble with day-to-day activities such as bathing, preparing meals, shopping, managing finances, etc.?: No Are you currently unemployed and looking for a job?: No Are you interested in more education?: No Please select the resources that you would like help with: None THRIVE Score: 0 AUDIT C Alcohol Use Questionnaire (AUDIT-C) 1. How often do you have a drink containing alcohol?: Monthly or less 2. How many drinks containing alcohol do you have on a typical day when you are drinking?: 1 or 2 3. How often do you have six or more drinks on one occasion?: Never Total Score: 1 Score Reviewed/Action Taken: No NICOLAS-7 AMB Questionnaire NICOLAS-7 Date NICOLAS - 7 assessed: 10/15/24 Feeling nervous, anxious, or on edge: 0 = Not at all Not being able to stop or control worryin = Not at all Worrying too much about different things: 0 = Not at all Trouble relaxin = Not at all Being so restless that it is hard to sit still: 0 = Not at all Becoming easily annoyed or irritable: 0 = Not at all Feeling afraid as if something awful might happen: 0 = Not at all Total NICOLAS-7 score (0-4 normal; 5-9 mild; 10-14 moderate; 15-21 severe): 0 Source: Developed by Drs. Kris Barrera, Kaylyn Back, Costa Powell and colleagues, with an educational tim from [employer]. NICOLAS-7 Assessment Billing NICOLAS-7 Assessment Tool: NICOLAS-7 Assessment 63624 Review of Systems Const Denies poor appetite and Denies weakness Eyes Denies no additional complaints ENT Reports Normal hearing present, Denies dizziness, Denies nasal congestion, Denies tinnitus and Denies sore throat Card Denies chest pain, Denies syncope, Denies rapid heart rate and Denies dyspnea Resp Denies cough and Denies dyspnea GI Denies change in stool character, Reports constipation, Denies diarrhea, Denies nausea and Denies vomiting Denies urinary frequency, Denies difficulty voiding and Denies dysuria Neuro Reports Normal hearing present, Denies confusion, Denies dizziness, Denies syncope and Denies weakness Psych Denies confusion Physical exam (Primary Care) Vital Signs: Last Vital Signs Pulse 76 10/15/24 11:01 BP 114/80 10/15/24 11:01 Pulse Ox 94 10/15/24 11:01 Oxygen Delivery Method Room Air 10/15/24 11:01 BMI result Body Mass Index 33.4 Tobacco/Smoking Status: Tobacco use Status Tobacco use date assessed 10/15/24 10/15/24 11:08 Patient Tobacco Use Status Never used Tobacco 10/15/24 10:58 e-Cigarette/Vaping Use Never Used 10/15/24 10:58 PHQ-9: PHQ-9 Score PHQ-9: Total score 0 10/15/24 11:08 Depression Screening Interpretation: Negative Thrive Assessment: Date of Thrive Assessment Date Thrive assessed 10/15/24 10/15/24 11:08 Const General: No confusion Orientation/consciousness: No confusion HENMT Other: impacted cerumen bilateral L > R Head: Yes normocephalic Ears: external ears normal Face and sinus: Yes normal facial exam Mouth: moist mucous membranes Throat: Yes tonsils normal Eyes Conjunctivae: conjunctivae normal Pupils: Equal, round and reactive pupils present and Pupil accommodation reflex normal Direct Ophthalmoscopy: normal light reflex Neck Neck: No lymphadenopathy Thyroid: Thyroid normal Chest Chest palpation & inspection: normal inspection of the chest Resp Effort & Inspection: normal respiratory effort and no audible wheezes Auscultation: clear to auscultation bilaterally, no crackles, no wheezes and lung sounds not diminished Cardio Rate: regular rate Rhythm: regular rhythm Peripheral pulses: radial pulses present and dorsalis pedis present GI Palpation (GI): no masses Auscultation: normal bowel sounds and normoactive bowel sounds Rectal Exam - Female: deferred Skin General skin exam: no rashes or lesions noted Rashes: no rashes Neuro General: No confusion Cranial nerves: Yes Equal, round and reactive pupils present and Yes Normal hearing present Cognition (Neuro): normal cognition Gait exam (Neuro): Normal gait present Motor exam (neuro): 5/5 motor strength present throughout Deep tendon reflexes (DTR's): Right brachioradialis reflex intensity grade: 2+, Left brachioradialis reflex intensity grade: 2+, Right patellar reflex intensity grade: 2+ and Left patellar reflex intensity grade: 2+ Extrem General: No edema Coding Level of Care Code Est Pt Prev Care 40-64y(31440) Diagnoses Annual physical exam Z00.00 Hypercholesterolemia E78.00 GERD (gastroesophageal reflux disease) K21.9 Migraine G43.909 Generalized anxiety disorder F41.1 Impacted cerumen of both ears H61.23 Additional Codes NICOLAS-7 Assessment Billing - NICOLAS-7 Assessment Tool: NICOLAS-7 Assessment 02678 ([id number]) PHQ-9 - 96643 - PHQ-9 Billing: Yes ([id number]) Assessment & Plan Assessment & Plan (1) Annual physical exam: Code(s): Z00.00 - Encounter for general adult medical examination without abnormal findings Category: Medical (2) Hypercholesterolemia: Code(s): E78.00 - Pure hypercholesterolemia, unspecified Category: Medical (3) GERD (gastroesophageal reflux disease): Code(s): K21.9 - Gastro-esophageal reflux disease without esophagitis Category: Medical (4) Migraine: Code(s): G43.909 - Migraine, unspecified, not intractable, without status migrainosus Category: Medical (5) Generalized anxiety disorder: Code(s): F41.1 - Generalized anxiety disorder Category: Medical (6) Impacted cerumen of both ears: Code(s): H61.23 - Impacted cerumen, bilateral Category: Medical Plan - Continue vitamin D and monitor levels - Refill prescription for Milburn; advise using one capsule initially to manage constipation - Intermittent use of omeprazole for gastrointestinal symptoms as needed - Suggest hydration and slow position changes for dizziness - Consider ophthalmologic consultation for elevated intraocular pressure - Examine ear dealing with wax build-up, potentially with Debrox - Schedule follow-up blood tests in six months to monitor cholesterol and other relevant markers During our visit, we discussed the reduction in LDL cholesterol levels and the importance of maintaining a healthy diet and active lifestyle to further reduce cardiovascular risk. I recommended continuing vitamin D therapy and suggested modifications in Milburn intake to optimize gastrointestinal function. We addressed the dizziness potentially due to positional vertigo, advising slow positional changes and adequate fluid intake. I emphasized the importance of ear hygiene, advising [id number] treatments like Debrox for earwax removal. We addressed concerns regarding high intraocular pressure and suggested follow-up with an physician relations specialist if worsening occurs. The patient was advised to obtain her flu shot and maintain regular health screenings. - Continue taking vitamin D as prescribed. - Adjust Milburn intake to one capsule, noting the response; only take two if necessary. - Use omeprazole for stomach issues only when needed. - Drink adequate water and rise slowly from lying positions to manage dizziness. - Use Debrox for earwax removal as directed on the package. - Follow a balanced diet and stay active to maintain cholesterol levels. - Schedule eye exam to monitor vision changes and intraocular pressure. - Get a flu shot during the current season and follow up with scheduled blood work before the next visit. Orders: Orders Thyroid Stimulating Hormone 6 Months E78.00 - Pure hypercholesterolemia, unspecified Complete Blood Count Auto Diff 6 Months E78.00 - Pure hypercholesterolemia, unspecified Comprehensive Met. Panel 6 Months E78.00 - Pure hypercholesterolemia, unspecified Free T4 (Free Thyroxine) 6 Months E78.00 - Pure hypercholesterolemia, unspecified Lipid Panel 6 Months E78.00 - Pure hypercholesterolemia, unspecified Vitamin B12 and Folate 6 Months E78.00 - Pure hypercholesterolemia, unspecified Vitamin D 25-OH Total 6 Months E78.00 - Pure hypercholesterolemia, unspecified Medications: Refilled cholecalciferol (vitamin D3) 50 mcg PO DAILY 90 tabs 3RF R79.89 - Other specified abnormal findings of blood chemistry sumatriptan succinate (Imitrex) do not exceed 4 doses per 24 hrs 50 mg PO Q2-4H PRN 14 tabs 11RF migraine headache G43.909 - Migraine, unspecified, not intractable, without status migrainosus omeprazole 20 mg PO DAILY 90 caps 3RF K21.9 - Gastro-esophageal reflux disease without esophagitis ropinirole administer 1-3 hours before bedtime 0.25 mg PO BEDTIME 90 tabs 2RF G25.81 - Restless legs syndrome sennosides-docusate sodium 8.6-50 mg (Senna Plus) 2 tab-caps (2 x 8.6-50 mg) PO BEDTIME 30 days 60 caps 3RF K59.00 - Constipation, unspecified
[2024-10-15 11:01] VITALS: BP 114/80; PULSE 76; O2SAT 94; BMI 33.4
== END 2024-10-15 11:31 | disposition home or self-care (01) ==
PROVIDERS: PCP Internal Medicine; Visit Provider Internal Medicine
DX: Z00.00 Encounter for general adult medical examination without abnormal findings (principal); E78.00 Pure hypercholesterolemia, unspecified; K21.9 Gastro-esophageal reflux disease without esophagitis; G43.909 Migraine, unspecified, not intractable, without status migrainosus; F41.1 Generalized anxiety disorder; H61.23 Impacted cerumen, bilateral; Z23 Encounter for immunization

== ENCOUNTER 2024-11-22 08:39 | Outpatient (REF) | payer MEDICARE, MEDICAID, SELFPAY | END 2024-11-22 08:40 | disposition home or self-care (01) | LOC: HO.MAMMO 08:39 | PROVIDERS: PCP Internal Medicine; Visit Provider Internal Medicine | DX: Z12.31 Encounter for screening mammogram for malignant neoplasm of breast (principal) ==

== ENCOUNTER → 2024-11-22 09:00 | Outpatient (BNV) | payer MEDICARE, MEDICAID, SELFPAY | PROVIDERS: PCP Internal Medicine; Visit Provider Internal Medicine | DX: Z12.31 Encounter for screening mammogram for malignant neoplasm of breast (principal) | CPT/HCPCS: 77063; 77067 ==

== ENCOUNTER 2024-12-23 09:51 | Outpatient (AMB) | payer MEDICARE, SELFPAY ==
--- NOTE | 2024-12-23 09:52 | A.OFFVIS_ITS ---
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 Intake Note: no concerns Selling Underwriter Required: No Information Interpreted: non-clinical & clinical Heeler Machine: Heeler Machine Present (Tabby MENARD) Allergies amoxicillin [From Augmentin] Adverse Reaction (Intermediate, Verified 12/23/24 09:57) Rash clavulanic acid [From Augmentin] Adverse Reaction (Intermediate, Verified 12/23/24 09:57) Rash hydrochlorothiazide Adverse Reaction (Intermediate, Verified 12/23/24 09:57) hypokalemia Medication List - Last Reconciled 12/23/24 by Noni Rivera CNM cholecalciferol (vitamin D3) 50 mcg PO DAILY omeprazole 20 mg PO DAILY ropinirole 0.25 mg PO BEDTIME sennosides-docusate sodium 8.6-50 mg (Senna Plus) 2 tab-caps (2 x 8.6-50 mg) PO BEDTIME 30 days silver sulfadiazine 1% (Silvadene) 1 appl topical DAILY simvastatin 5 mg PO BEDTIME sumatriptan succinate (Imitrex) 50 mg PO Q2-4H PRN Is last menstrual period known: Yes Last menstrual period: 12/13/24 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 She has a history of an abnormal Pap smear and LEEP in 2004 her last Pap smear was negative in 2021 and the plan was to repeat in 3-5 years so we will repeat it today She says her only health concern is high cholesterol and she is on medicine for that and trying to watch what she eats. She is trying to exercise in that she does Tish in a class 3 times a week on [place] for an hour. Her kids are growing up ages 24-12. She had her mammogram last month She wants me to check a small ball that she feels near her but that she felt for the last 3 days. [facility] Medical History Hypertension Screen for sexually transmitted diseases Herpes genitalis Colon cancer screening Breast cancer screening Constipation Elevated blood pressure reading Nausea Cough Breast density Plantar wart of right foot Nasal bone fracture History of lead exposure Restless leg syndrome GERD (gastroesophageal reflux disease) Hypercholesterolemia Migraine Suprapubic pain Sacroiliac joint somatic dysfunction Surgical History History of surgery H/O LEEP History of section History of tubal ligation Family History Father Mouth cancer Mother No problems noted. Sister Bipolar 1 disorder CVA (cerebral vascular accident) Maternal Aunt Breast cancer Other Mental health disorder Social History Housing: Apartment Alcohol intake: current Alcohol intake frequency: holidays/special occasions only Comment: once a month 2 glasses Patient Tobacco Use Status: Never used Tobacco e-Cigarette/Vaping Use: Never Used Second Hand Smoke Exposure: No service: No Current occupational status: unemployed Current occupational exposures/hazards: No Cognitive needs: Yes (cane) Hearing needs: No Vision needs: Yes (Glasses) Female Reproductive History Menstrual Age of Menarche: 15 Date of last menstrual period: 12/13/24 control method: permanent sterilization Total pregnancies: 4 Full term: 3 Number of Living Children: 3 Ab induced: 1 Date of last pap smear: 09/14/22 Date of Mammogram: 11/22/24 Physical Exam Vital Signs: Last Vital Signs BP 116/70 12/23/24 09:53 BMI result Body Mass Index 32.2 Const General: healthy appearing, comfortable, no acute distress, well developed and alert Nutritional Appearance: average body habitus Orientation/consciousness: patient oriented x3 Limitations: no limitations HEENT Head: Yes normocephalic Neck Neck: Yes normal visual inspection Chest Chest palpation & inspection: normal inspection of the chest Breast/axilla inspection: normal inspection of the breasts and normal inspection of the axillae Breast/axilla palpation: normal palpation of the breasts and normal palpation of the axillae Resp Effort & Inspection: normal respiratory effort GI Inspection: Yes normal to inspection, No Abdominal wall edema and No distended Palpation (GI): Soft to palpation and nontender Other: External exam completely within normal limits no swelling or mass or lesion visualized or palpated anywhere where she described no hemorrhoid no evident folliculitis either Vagina pink and moist cervix multiparous pink smooth healthy appearing does not appear very scarred from LEEP in fact LEEP not visually evident healthy appearing mucus and mucosa. Uterus small midposition mobile nontender adnexa nontender good tone with Kegel General: Yes bladder normal to palpation External Female Exam: normal external appearance and normal appearance of the urethra Speculum Exam - Vagina: normal appearance of the vagina, normal palpation and normal vaginal discharge Speculum Exam - Cervix: normal appearance of the cervix, normal palpation and nontender Bimanual exam- vagina & uterus: normal bimanual exam, normal palpation, uterine size normal, bladder normal to palpation, consistency normal, normal palpation, uterine mobility normal, uterine shape normal, No Cervical tenderness present, non-tender and no cervical motion tenderness Bimanual Exam- Adnexa, other: normal adnexae, no masses, normal and No adnexal tenderness Neuro General: patient oriented x3 Results Reviewed Results Reviewed: Gynecologic Cytology [id number] Name: Geovanny Pleitez Age/Sex: 47/F Attending: Noni Rivera CNM : 1975 Submitted by: Noni Rivera CNM Copies to: MR #: [id number] Status: DEP REF Collected: 09/13/22 Location: [facility] Received: 09/14/22 Interpretation Satisfactory for evaluation. Negative for intraepithelial lesion or malignancy. Mild inflammation. HPV mRNA E6/E7: NOT DETECTED This assay detects E6/E7 viral messenger RNA (mRNA) from 14 high-risk HPV types (16, 18, 31, 33, 35, 39, 45, 51, 52, 56, 58, 59, 66, 68) HPV testing performed by [email or web address], [place], [place]. See reference laboratory portion of the EMR for entire report. Clinical Information LMP: 09/08/22 Previous PAP test: 08/12/19, WNL Material Received ThinPrep-Cervical Electronically Signed By: Gema Madrigal 10/03/22 1556 The Pap Test is a screening procedure with the inherent possibility of both false negative and false positive results. Results should be interpreted in the context of historic and current clinical findings. Reliability of the Pap Test is enhanced by performing the test on a regular repetitive basis. Patient: Geovanny Pleitez Age/Sex: 47/F MR#: [id number] Page 1 of 1 Assessment & Plan Assessment & Plan (1) History of tubal ligation: Comment: 11/29/2012 Code(s): Z98.51 - Tubal ligation status Category: Surgical (2) H/O LEEP: Comment: 09/13/2022 Pap is negative with negative HPV;next pap 3-5 y Code(s): Z98.890 - Other specified postprocedural states Category: Surgical (3) Well woman exam with routine gynecological exam: Code(s): Z01.419 - Encounter for gynecological examination (general) (routine) without abnormal findings Category: Medical Plan -----Discussed in this visit the following: healthy balanced diet, regular and consistent exercise, getting recommended health screens, doing the best she can for her particular health concerns, kegel exercises, pap smear screening and followup recommendations, mammography screening and SBE, normal changes in cy cles in her life stage--- . Congratulated on her efforts at healthier movement and self-care. She is up-to-date on all of her screens . I did not see or feel any bump or ball or swelling or lesion in her perineal circum rectal area today. Orders: Orders Pap Smear Today Z01.419 - Encounter for gynecological examination (general) (routine) without abnormal findings, Z98.890 - Other specified postprocedural states HPV High risk Today Z01.419 - Encounter for gynecological examination (general) (routine) without abnormal findings, Z98.890 - Other specified postprocedural states Coding Level of Care Code Est Pt Prev Care 40-64y(98353) Diagnoses History of tubal ligation Z98.51 H/O LEEP Z98.890 Well woman exam with routine gynecological exam Z01.419
[2024-12-23 09:53] VITALS: BP 116/70; BMI 32.2
== END 2024-12-23 10:35 | disposition home or self-care (01) ==
PROVIDERS: PCP Internal Medicine; Visit Provider Advanced Practice Midwife
DX: Z01.419 Encounter for gynecological examination (general) (routine) without abnormal findings (principal)
CPT/HCPCS: 99396; 99459

== ENCOUNTER 2024-12-23 09:51 | Outpatient (REF) | payer MEDICARE, SELFPAY ==
[2024-12-27 14:59] LABS: HPV Genotype 16 Negative (Negative); HPV Genotype 18 Negative (Negative); HPV High Risk Negative (Negative)
== END 2024-12-23 09:52 | disposition home or self-care (01) ==
LOC: HO.LNP 09:51
PROVIDERS: PCP Internal Medicine; Visit Provider Advanced Practice Midwife
DX: Z01.419 Encounter for gynecological examination (general) (routine) without abnormal findings (principal); Z98.890 Other specified postprocedural states
CPT/HCPCS: 87626; 88175; 99396; 99459

== ENCOUNTER 2025-04-21 08:18 | Outpatient (REF) | payer MEDICARE, SELFPAY ==
[2025-04-21 08:47] LABS: MANUAL DIFF FLAG NO
[2025-04-21 09:38] LABS: Hematocrit 44.2 % (37.0-47.0); Hemoglobin 14.7 g/dl (12.0-16.0); Imm Gran Abs Auto 0.02 X10*3/uL (0.00-0.03); Imm Gran Pct Auto 0.3 % (0.0-0.4); Lymphocytes Absolute Auto 3.1 X10*3/uL (1.2-4.9); Mean Corpuscular HGB Conc 33.3 g/dl (31.0-35.0); Mean Corpuscular Hemoglobin 31.7 pg (27.0-33.0); Mean Corpuscular Volume 95.3 fL (80.0-98.0); NRBC Abs Auto 0.000 X10*3/uL (0.0-0.012); NRBC Pct Auto 0.0 /100WBC (0.0-0.2); Platelet Count 284 X10*3/uL (160-400); Red Blood Count 4.64 X10*6/uL (4.20-5.50); White Blood Count 7.5 X10*3/uL (4.8-10.8)
[2025-04-21 11:06] LABS: Alanine Aminotransferase 15 U/L (0-31); Albumin Level 4.7 g/dL (3.5-5.0); Alkaline Phosphatase 85 U/L (39-117); Anion Gap 11 (12-20); Aspartate Amino Transferase 20 U/L (5-31); Blood Urea Nitrogen 17 mg/dL (9-16); Calcium 9.8 mg/dL (8.4-10.2); Carbon Dioxide 25 mmol/L (22-29); Chloride 106 mmol/L (96-108); Cholesterol 211 mg/dL (<200); Estimated Glomerular Filt Rate > 60; HDL Cholesterol 56 mg/dL (>40); Potassium 4.0 mmol/L (3.3-5.1); Sodium 138 mmol/L (135-145); Total Protein 8.1 g/dL (6.5-8.0); Triglycerides 167 mg/dL (<150)
[2025-04-21 11:30] LABS: Free T4 (Free Thyroxine) 0.87 ng/dL (0.71-1.85); Thyroid Stimulating Hormone 0.95 uIU/mL (0.32-4.0)
[2025-04-21 11:34] LABS: Folate 10.0 ng/mL (> or = 4.0); Vitamin B12 216 pg/mL (200-900)
== END 2025-04-21 08:19 | disposition home or self-care (01) ==
LOC: HO.LAB 08:18
PROVIDERS: PCP Internal Medicine; Visit Provider Internal Medicine
DX: E78.00 Pure hypercholesterolemia, unspecified (principal)
CPT/HCPCS: 36415; 80053; 80061; 82306; 82607; 82746; 84439; 84443; 85025

== ENCOUNTER 2025-07-22 09:15 | Outpatient (AMB) | payer MEDICARE, SELFPAY ==
--- NOTE | 2025-07-22 09:17 | A.OFFPC_ITS ---
Vital Signs 07/22/25 09:18 Height 5 ft Weight 169 lb 6 oz BMI 33.1 BP 132/90 H Blood Pressure Location Lt brachial Position Sitting Pulse 77 Pulse Source Pulse Oximeter Temp 97.3 F Temp Source Temporal Artery Scan Pulse Oximetry (%) 94 Oxygen Delivery Method Room Air Intake Visit Reasons: Cholesterol Allergies amoxicillin (From Augmentin) Adverse Reaction (Intermediate, Verified 07/22/25 09:21) Rash clavulanic acid (From Augmentin) Adverse Reaction (Intermediate, Verified 07/22/25 09:21) Rash hydrochlorothiazide Adverse Reaction (Intermediate, Verified 07/22/25 09:21) hypokalemia Medication List - Last Reconciled 07/22/25 by Carmen Velez MD cholecalciferol (vitamin D3) 50 mcg PO DAILY cyanocobalamin (vitamin B-12) 1,000 mcg PO DAILY omeprazole 20 mg PO DAILY ropinirole 0.25 mg PO BEDTIME sennosides-docusate sodium 8.6-50 mg (Senna Plus) 2 tab-caps (2 x 8.6-50 mg) PO BEDTIME 30 days [Shower chair As directed] silver sulfadiazine 1% (Silvadene) 1 appl topical DAILY simvastatin 5 mg PO BEDTIME sumatriptan succinate (Imitrex) 50 mg PO Q2-4H PRN Tobacco use date assessed: 07/22/25 Dental Screening Dental Screen Date: 07/22/25 Did you have a dental visit in the last 12 months?: Yes Did you have a dental problem in the last 6 months where you did not have access to dental care?: No Was dental information given to patient?: Patient has dentist HPI Cholesterol HPI Details R ankle pain had MRI and shot given. noted given to me that AIC 5.7 - discussed about [facility] Medical History Hypertension Screen for sexually transmitted diseases Herpes genitalis Colon cancer screening Breast cancer screening Constipation Elevated blood pressure reading Nausea Cough Breast density Plantar wart of right foot Nasal bone fracture History of lead exposure Restless leg syndrome GERD (gastroesophageal reflux disease) Hypercholesterolemia Migraine Suprapubic pain Sacroiliac joint somatic dysfunction Surgical History History of surgery H/O LEEP History of section History of tubal ligation Family History Father Mouth cancer Mother No problems noted. Sister Bipolar 1 disorder CVA (cerebral vascular accident) Maternal Aunt Breast cancer Other Mental health disorder Social History Housing: Apartment Alcohol intake: current Alcohol intake frequency: holidays/special occasions only Comment: once a month 2 glasses Patient Tobacco Use Status: Never used Tobacco e-Cigarette/Vaping Use: Never Used Second Hand Smoke Exposure: No service: No Current occupational status: unemployed Current occupational exposures/hazards: No Cognitive needs: Yes (cane) Hearing needs: No Vision needs: Yes (Glasses) Female Reproductive History Menstrual Age of Menarche: 15 Questionnaire PHQ-9 Over the last 2 weeks, how often have you been bothered by any of the following problems? 1. Little interest or pleasure in doing things: not at all 2. Feeling down, depressed, or hopeless: not at all 3. Trouble falling or staying asleep, or sleeping too much: not at all 4. Feeling tired or having little energy: not at all 5. Poor appetite or overeating: not at all 6. Feeling bad about yourself - or that you are a failure or have let yourself or your family down: not at all 7. Trouble concentrating on things, such as reading the newspaper or watching television: not at all 8. Moving or speaking so slowly that other people could have noticed. Or the opposite - being so fidgety or restless that you have been moving around a lot more than usual: not at all 9. Thoughts that you would be better off or of hurting yourself in some way: not at all Total score: 0 Depression Screening Interpretation: Negative Depression Screening Done: Yes 72800 - PHQ-9 Billing: Yes Source: Developed by Drs. Kris Barrera, Kaylyn Back, Costa Powell and colleagues, with an educational tim from [employer]. Thrive Questionnaire Date Thrive assessed: 07/22/25 I am a: Patient What is your living situation today?: I have a steady place to live Within the past 12 months, did the food you bought not last and you didn't have the money to get more?: Never true Within the past 12 months, did you worry whether your food would run out before you got money to buy more?: Never true Do you have trouble paying for medicines?: No Do you have trouble getting transportation to medical appointments?: No Do you have trouble paying your heating and electricity bill?: No Do you have trouble taking care of your child, family member or friend?: No Do you have trouble with day-to-day activities such as bathing, preparing meals, shopping, managing finances, etc.?: No Are you currently unemployed and looking for a job?: No Are you interested in more education?: No Please select the resources that you would like help with: None THRIVE Score: 0 AUDIT C Alcohol Use Questionnaire (AUDIT-C) 1. How often do you have a drink containing alcohol?: Monthly or less 2. How many drinks containing alcohol do you have on a typical day when you are drinking?: 1 or 2 3. How often do you have six or more drinks on one occasion?: Never Total Score: 1 NICOLAS-7 AMB Questionnaire NICOLAS-7 Date NICOLAS - 7 assessed: 07/22/25 Feeling nervous, anxious, or on edge: 0 = Not at all Not being able to stop or control worryin = Not at all Worrying too much about different things: 0 = Not at all Trouble relaxin = Not at all Being so restless that it is hard to sit still: 0 = Not at all Becoming easily annoyed or irritable: 0 = Not at all Feeling afraid as if something awful might happen: 0 = Not at all Total NICOLAS-7 score (0-4 normal; 5-9 mild; 10-14 moderate; 15-21 severe): 0 Source: Developed by Drs. Kris Barrera, Kaylyn Back, Costa Powell and colleagues, with an educational tim from [employer]. NICOLAS-7 Assessment Billing NICOLAS-7 Assessment Tool: NICOLAS-7 Assessment 32355 Physical exam (Primary Care) Vital Signs: Last Vital Signs Temp 97.3 F 07/22/25 09:18 Pulse 77 07/22/25 09:18 BP 132/90 H 07/22/25 09:18 Pulse Ox 94 07/22/25 09:18 Oxygen Delivery Method Room Air 07/22/25 09:18 BMI result Body Mass Index 33.1 Tobacco/Smoking Status: Tobacco use Status Tobacco use date assessed 07/22/25 07/22/25 09:22 Patient Tobacco Use Status Never used Tobacco 07/22/25 09:22 e-Cigarette/Vaping Use Never Used 07/22/25 09:22 PHQ-9: PHQ-9 Score PHQ-9: Total score 0 07/22/25 09:30 Depression Screening Interpretation: Negative Thrive Assessment: Date of Thrive Assessment Date Thrive assessed 07/22/25 07/22/25 09:22 Const General: alert; No acute distress Eyes Conjunctivae: conjunctivae normal Resp Auscultation: clear to auscultation bilaterally Cardio Rate: regular rate Rhythm: regular rhythm GI Inspection: Yes normal to inspection Extrem General: Yes normal to inspection and No edema Coding Level of Care Code Est Pt Level 4 (37324) Complex EM visit Add On G2211 Diagnoses Low vitamin B12 level E53.8 GERD (gastroesophageal reflux disease) K21.9 Generalized anxiety disorder F41.1 Hypercholesterolemia E78.00 Right ankle pain M25.571 Additional Codes NICOLAS-7 Assessment Billing - NICOLAS-7 Assessment Tool: NICOLAS-7 Assessment 65369 ([id number]) PHQ-9 - 62600 - PHQ-9 Billing: Yes ([id number]) Assessment & Plan Assessment & Plan (1) Low vitamin B12 level: Code(s): E53.8 - Deficiency of other specified B group vitamins Category: Medical Plan: Continue with vitamin B12 (2) GERD (gastroesophageal reflux disease): Code(s): K21.9 - Gastro-esophageal reflux disease without esophagitis Category: Medical Plan: Avoid the foods that causes that usually spicy foods, tomato products, juices, coffee, soda and foods that your sensitive to. After eating do not lie down, allow 3-4 hours before in lie down. And keep the head of bed above 30 degrees to avoid the acid from going up. (3) Generalized anxiety disorder: Code(s): F41.1 - Generalized anxiety disorder Category: Medical Plan: Stable (4) Hypercholesterolemia: Code(s): E78.00 - Pure hypercholesterolemia, unspecified Category: Medical Plan: Avoid fried foods, chicken skin, eggs, butter margarine, pastries and meat. Be it pork or beef they have a lot of cholesterol LDL goal of less than 130 and triglyceride of less than 150 on simvastatin (5) Right ankle pain: Code(s): M25.571 - Pain in right ankle and joints of right foot Category: Medical Plan: Patient has seen Orthopedics and was advised MRI. Plan History of Present Illness The patient is a 50-year-old female presenting for a follow-up visit. She has a history of hypercholesterolemia, gastroesophageal reflux disease (GERD), migraine, and generalized anxiety disorder. Her last visit was in September for a physical exam. The patient reports that her mammogram and Cologuard test are up to date, indicating adherence to preventative care measures. She has been experiencing right foot pain and right ankle pain, for which she consulted the [facility] and was advised to undergo an MRI. Recent blood work from April 21 showed normal blood count, electrolytes, renal function, blood sugar, and liver function. Cholesterol levels have improved with triglycerides reduced to 167 mg/dL and an elevated HDL level. However, vitamin B12 and vitamin D levels were found to be low. Health Maintenance - Mammogram up to date - Cologuard test up to date - Cholesterol management with simvastatin, LDL goal of less than 130 mg/dL, triglyceride goal of less than 150 mg/dL - Vitamin B12 supplementation with 1000 mcg once a day - Vitamin D supplementation recommended during winter months Social History Review of Systems - Musculoskeletal: Reports right foot and ankle pain. - Dermatological: Reports generalized itchiness, possibly related to new clothing. Physical Exam Results - Labs: Normal blood count, electrolytes, renal function, blood sugar, liver function. - Labs: Triglycerides reduced to 167 mg/dL, elevated HDL. - Labs: Low vitamin B12 and vitamin D levels. Plan Patient was informed and verbally consented to the use of an ambient scribe for clinic note documentation during this visit. 1. Hypercholesterolemia The patient is currently on simvastatin for cholesterol management, with a target LDL level of less than 130 mg/dL and triglycerides less than 150 mg/dL. Recent lab results indicate improvement in cholesterol levels, with triglycerides reduced to 167 mg/dL and an elevated HDL level. 2. Vitamin B12 Deficiency The patient has been advised to take vitamin B12 supplementation at a dose of 1000 mcg once daily. This is to address the low vitamin B12 levels identified in recent lab work. 3. Vitamin D Deficiency Vitamin D supplementation is recommended, especially during the winter months, to address the deficiency noted in lab results. 4. Right Foot And Ankle Pain The patient has been experiencing right foot and ankle pain and has consulted with the [facility]. An MRI has been recommended to further evaluate the condition. Discussion Notes During the visit, we discussed the management of hypercholesterolemia with simvastatin, aiming for an LDL goal of less than 130 mg/dL and triglycerides less than 150 mg/dL. We also addressed the vitamin B12 deficiency, recommending a daily supplementation of 1000 mcg, and discussed the importance of vitamin D supplementation, particularly in the winter months. For the right foot and ankle pain, an MRI was advised to further investigate the issue. Patient Instructions - Continue taking simvastatin as prescribed to manage cholesterol levels. - Take vitamin B12 1000 mcg daily to address deficiency. - Consider vitamin D supplementation during winter months. - Follow up with the orthopedic technician for MRI of the right foot and ankle. - Monitor for any new or worsening symptoms and report them promptly. Medications: New cyanocobalamin (vitamin B-12) 1,000 mcg PO DAILY 30 caps 3RF E53.8 - Deficiency of other specified B group vitamins loratadine (Claritin) 10 mg PO DAILY PRN 30 tabs 0RF allergy symptoms Refilled cholecalciferol (vitamin D3) 50 mcg PO DAILY 90 tabs 3RF R79.89 - Other specified abnormal findings of blood chemistry
[2025-07-22 09:18] VITALS: BP 132/90; PULSE 77; TEMP 36.3; O2SAT 94; BMI 33.1
== END 2025-07-22 09:51 | disposition home or self-care (01) ==
LOC: HO.HMCH 09:16
PROVIDERS: PCP Internal Medicine; Visit Provider Internal Medicine
DX: E53.8 Deficiency of other specified B group vitamins (principal); K21.9 Gastro-esophageal reflux disease without esophagitis; F41.1 Generalized anxiety disorder; E78.00 Pure hypercholesterolemia, unspecified; M25.571 Pain in right ankle and joints of right foot

== ENCOUNTER → 2025-07-22 09:15 | Outpatient (BNVA) | payer MEDICARE, SELFPAY | PROVIDERS: PCP Internal Medicine; Visit Provider Internal Medicine | DX: K21.9 Gastro-esophageal reflux disease without esophagitis (principal); E53.8 Deficiency of other specified B group vitamins; F41.1 Generalized anxiety disorder; E78.00 Pure hypercholesterolemia, unspecified; M25.571 Pain in right ankle and joints of right foot; G43.909 Migraine, unspecified, not intractable, without status migrainosus; E55.9 Vitamin D deficiency, unspecified | CPT/HCPCS: 96127; 99212 ==